=== PATIENT | female | born 1930 | race Caucasian/White ===

== ENCOUNTER → 2019-03-07 | Outpatient (CLI) | payer MEDICARE ==
--- NOTE | 2019-03-07 10:16 | Diagnostic Imaging Report ---
INDICATION: Mid back pain. No known injury. COMPARISON: None. FINDINGS: 4 views of the right ribs are submitted. No evidence of acute displaced rib fracture on the right. Generalized osteopenia is noted. Included views of the right chest demonstrate no focal consolidations. Scattered areas of discoid atelectasis are noted in the right lung. IMPRESSION: No acute displaced rib fractures on the right. Dictated by: Dictated on workstation # [id number]
--- NOTE | 2019-03-07 10:18 | Diagnostic Imaging Report ---
INDICATION: Pain in the middle of the back. No known injury. COMPARISON: None. FINDINGS: Multiple vertebral bodies demonstrate age-indeterminate height loss, most prominent at the T11 level. These findings are superimposed on generalized osteopenia. There is exaggerated kyphosis of the thoracic spine. Included views of the chest demonstrate no focal consolidations. Postcholecystectomy clips are noted in the right upper quadrant. IMPRESSION: Multiple age-indeterminate compression fractures in the thoracic spine. Recommend correlation with point tenderness and CT or MRI of the thoracic spine if indicated. Dictated by: Dictated on workstation # [id number]
== END ==
LOC: RAD FS 09:35
PROVIDERS: ATTEND Nurse Practitioner Family
DX: M48.54XA Collapsed vertebra, not elsewhere classified, thoracic region, initial encounter for fracture (principal)
CPT/HCPCS: 71100; 72070

== ENCOUNTER → 2019-10-31 | Outpatient (CLI) | payer MEDICARE ==
--- NOTE | 2019-10-31 14:30 | Diagnostic Imaging Report ---
PROCEDURE: US Renal Bilateral. TECHNIQUE: Multiple real-time grayscale images were obtained over the kidneys in various projections bilaterally. INDICATION: Chronic kidney disease stage IV. Both kidneys are small. Right kidney measures 7.5 x 3.8 x 3.9 cm, and the left kidney measures 7.3 x 4.2 x 4.3 cm. Cortical thickness and echogenicity is unremarkable. No calculi are seen. There is no hydronephrosis. Bladder is decompressed. Ureteral jets were not visualized. IMPRESSION: Small kidneys bilaterally. No other significant abnormality is detected. Dictated by: Dictated on workstation # [id number]
== END ==
LOC: RAD 11:10
PROVIDERS: ATTEND Internal Medicine
DX: N18.4 Chronic kidney disease, stage 4 (severe) (principal); N27.1 Small kidney, bilateral
CPT/HCPCS: 76770

== ENCOUNTER → 2019-11-29 | Outpatient (CLI) | payer MEDICARE ==
[2019-11-29 14:33] LABS: BILIRUBIN,URINE NEGATIVE (NEGATIVE); CLARITY,URINE CLEAR; COLOR,URINE YELLOW; GLUCOSE, URINE (UA) NEGATIVE (NEGATIVE); KETONES,URINE NEGATIVE (NEGATIVE); LEUKOCYTE ESTERASE ,URINE NEGATIVE (NEGATIVE); NITRITE,URINE NEGATIVE (NEGATIVE); PH,URINE 5.5 (5-9); PROTEIN,URINE NEGATIVE (NEGATIVE)
[2019-11-29 14:34] LABS: BACTERIA,URINE NEGATIVE /HPF
[2019-11-29 14:35] LABS: BASOPHILS % (AUTO) 0 % (0-10); EOSINOPHILS # (AUTO) 0.3 10^3/uL (0.0-0.3); EOSINOPHILS % (AUTO) 3 % (0-10); HEMATOCRIT 37 % (35-52); HEMOGLOBIN 12.1 G/DL (11.5-16.0); LYMPHOCYTES # (AUTO) 2.4 X 10^3 (1.0-4.0); LYMPHOCYTES % (AUTO) 23 % (12-44); MEAN CORPUSCULAR HEMOGLOBIN 31 PG (25-34); MEAN CORPUSCULAR HGB CONC 33 G/DL (32-36); MEAN CORPUSCULAR VOLUME 93 FL (80-99); MONOCYTES % (AUTO) 9 % (0-12); NEUTROPHILS # (AUTO) 6.7 X 10^3 (1.8-7.8); NEUTROPHILS % (AUTO) 65 % (42-75); PLATELET COUNT 289 10^3/uL (130-400); RED CELL DISTRIBUTION WIDTH 14.3 % (10.0-14.5); WHITE BLOOD COUNT 10.3 10^3/uL (4.3-11.0)
[2019-11-29 14:36] LABS: ALBUMIN 4.3 GM/DL (3.2-4.5); CALCIUM 9.8 MG/DL (8.5-10.1); CREATININE SERUM 2.64 MG/DL (0.60-1.30); POTASSIUM 4.9 MMOL/L (3.6-5.0)
[2019-11-30 15:45] LABS: PHOSPHORUS 3.1 MG/DL (2.3-4.7)
[2019-11-30 15:49] LABS: URINE CREATININE FOR RATIO 140 MG/DL (30-125)
[2019-11-30 15:50] LABS: URINE PROTEIN FOR RATIO ONLY < 6 MG/DL (6-12)
== END ==
LOC: LAB FS 12:59
PROVIDERS: ATTEND Internal Medicine
DX: N18.4 Chronic kidney disease, stage 4 (severe) (principal); E87.5 Hyperkalemia; R82.90 Unspecified abnormal findings in urine
CPT/HCPCS: 36415; 80069; 81000; 82570; 84156; 85025

== ENCOUNTER → 2020-01-03 | Outpatient (CLI) | payer MEDICARE ==
[2020-01-03 09:57] LABS: WHITE BLOOD COUNT 9.3 10^3/uL (4.3-11.0)
[2020-01-03 09:58] LABS: BASOPHILS % (AUTO) 0 % (0-10); HEMATOCRIT 38 % (35-52); HEMOGLOBIN 12.4 G/DL (11.5-16.0); LYMPHOCYTES % (AUTO) 30 % (12-44); MEAN CORPUSCULAR HEMOGLOBIN 31 PG (25-34); MEAN CORPUSCULAR HGB CONC 33 G/DL (32-36); MEAN CORPUSCULAR VOLUME 94 FL (80-99); MEAN PLATELET VOLUME 9.8 FL (7.4-10.4); MONOCYTES % (AUTO) 8 % (0-12); NEUTROPHILS % (AUTO) 59 % (42-75); PLATELET COUNT 331 10^3/uL (130-400); RED CELL DISTRIBUTION WIDTH 14.9 % (10.0-14.5)
[2020-01-03 09:59] LABS: EOSINOPHILS # (AUTO) 0.3 10^3/uL (0.0-0.3); EOSINOPHILS % (AUTO) 3 % (0-10); LYMPHOCYTES # (AUTO) 2.8 X 10^3 (1.0-4.0); MONOCYTES # (AUTO) 0.7 X 10^3 (0.0-1.0); NEUTROPHILS # (AUTO) 5.5 X 10^3 (1.8-7.8)
[2020-01-03 15:12] LABS: ALBUMIN 4.3 GM/DL (3.2-4.5); CALCIUM 9.4 MG/DL (8.5-10.1); CREATININE SERUM 2.32 MG/DL (0.60-1.30); PHOSPHORUS 3.3 MG/DL (2.3-4.7); POTASSIUM 4.9 MMOL/L (3.6-5.0)
[2020-01-04 11:04] LABS: BILIRUBIN,URINE NEGATIVE (NEGATIVE); CLARITY,URINE CLEAR; COLOR,URINE YELLOW; GLUCOSE, URINE (UA) NEGATIVE (NEGATIVE); KETONES,URINE NEGATIVE (NEGATIVE); LEUKOCYTE ESTERASE ,URINE TRACE (NEGATIVE); NITRITE,URINE NEGATIVE (NEGATIVE); PROTEIN,URINE NEGATIVE (NEGATIVE)
[2020-01-04 11:05] LABS: BACTERIA,URINE NEGATIVE /HPF
== END ==
LOC: LAB FS 08:27
PROVIDERS: ATTEND Internal Medicine
DX: I12.9 Hypertensive chronic kidney disease with stage 1 through stage 4 chronic kidney disease, or unspecified chronic kidney disease (principal); D63.1 Anemia in chronic kidney disease; N18.4 Chronic kidney disease, stage 4 (severe); E87.5 Hyperkalemia; E21.1 Secondary hyperparathyroidism, not elsewhere classified
CPT/HCPCS: 36415; 80069; 82607; 82746; 83540; 83550; 85025

== ENCOUNTER 2020-04-17 19:08 | Emergency (ER) | payer MEDICARE, MEDICAID ==
[~2020-04-17] VITALS: Ht 160 cm; Wt 61.0 kg
[2020-04-17 19:41] LABS: HEMOGLOBIN 10.9 G/DL (11.5-16.0); MEAN CORPUSCULAR HEMOGLOBIN 31 PG (25-34); WHITE BLOOD COUNT 14.8 10^3/uL (4.3-11.0)
--- NOTE | 2020-04-17 19:41 | ED Fall/Injury ---
General Chief Complaint: Trauma-Non Activation Stated Complaint: FALL Source: patient, EMS History of Present Illness Date Seen by Provider: Apr 17, 2020 Time Seen by Provider: 19:08 Initial Comments 89-year-old female presenting by EMS after having a fall at home. She states that she was walking outside her house and tripped and fell on the concrete. She denies losing consciousness. She does have a sore spot on the top of her head. She complains of mild pain in her neck and upper back but the majority of her pain is in the buttock area. She has pain in her left forearm with an abrasion. She denies any loss of consciousness. She did receive 50 g of fentanyl by EMS prior to arrival. This is brought her pain down to 1 or 2. She still has increased pain with movement. She states that she is unable to bear weight especially on the left leg and hip due to the pain. She denies taking any blood thinners. Allergies and Home Medications Allergies Coded Allergies: Sulfa (Sulfonamide Antibiotics) (Verified Allergy, Unknown, 04/17/20) Patient Home Medication List Home Medication List Reviewed: Yes Review of Systems Review of Systems Constitutional: No chills, No dizziness, No fever Eyes: Denies Blurred Vision, Denies Photophobia, Denies Vision Changes Ears, Nose, Mouth, Throat: denies ear pain, denies ear discharge, denies nose discharge, denies epistaxis Respiratory: No cough, No short of breath, No stridor, No wheezing Cardiovascular: No chest pain, No palpitations, No syncope Gastrointestinal: No abdominal pain, No nausea, No vomiting Genitourinary: No dysuria, No incontinence Musculoskeletal: see HPI Skin: see HPI, other (left forearm abrasion) Psychiatric/Neurological: Headache (mild left parietal where she has contusion/bruise) Past Ycnkosy-Erlosa-Dveikv Hx Past Med/Social Hx: Reviewed Nursing Past Med/Soc Hx Patient Social History Alcohol Use: Denies Use Recent Foreign Travel: No Contact w/Someone Who Travel: No Past Medical History Surgeries: Yes Abdominal, Appendectomy, Gallbladder, Hysterectomy Respiratory: No Cardiac: Yes Hypertension Neurological: No 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 Disorders: No Genitourinary: Yes Renal Failure Gastrointestinal: No Musculoskeletal: Yes Degenerate Disk Disease, Osteoporosis, Chronic Back Pain Endocrine: No HEENT: No Cancer: Yes Colon Did You Recieve Any Treatments: Yes What Type of Treatment Did You: Surgical Intervention Psychosocial: No Integumentary: No Physical Exam Vital Signs Vital Signs - First Documented Capillary Refill : Height, Weight, BMI Height: '" Weight: lbs. oz. kg; BMI Method: General Appearance: WD/WN, mild distress HEENT: PERRL/EOMI, TMs normal, pharynx normal Neck: full range of motion, supple, tender lateral (mild bilateral) Cardiovascular: normal peripheral pulses, regular rate, rhythm Respiratory: chest non-tender, lungs clear, normal breath sounds, no respiratory distress, no accessory muscle use Peripheral Pulses: 2+ Carotid (R), 2+ Carotid (L), 2+ Radial Pulses (R), 2+ Radial Pulses (L) Gastrointestinal: normal bowel sounds, non tender, soft, no pulsatile mass Back: vertebral tenderness (mid thoracic and lower lumbar/sacral area) Extremities: normal range of motion, no calf tenderness, normal capillary refill, other (tender to palpation left forearm where she has abrasion, pelvis stable but some pain to hip/pelvis with ROM of left hip on internal/external rotation) Neurologic/Psychiatric: 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, no motor/sensory deficits, alert, normal mood/affect, oriented x 3 Skin: normal color, warm/dry [place] Coma Score Best Eye Response: (4) Open Spontaneously Best Verbal Response: (5) Oriented Best Motor Response: (6) Obeys Commands Susana Total: 15 Progress/Results/Core Measures Results/Orders Lab Results Laboratory Tests Test 04/17/20 19:27 04/17/20 21:51 Range/Units White Blood Count 14.8 H 4.3-11.0 10^3/uL Red Blood Count 3.52 L 4.35-5.85 10^6/uL Hemoglobin 10.9 L 11.5-16.0 G/DL Hematocrit 33 L 35-52 % Mean Corpuscular Volume 94 80-99 FL Mean Corpuscular Hemoglobin 31 25-34 PG Mean Corpuscular Hemoglobin Concent 33 32-36 G/DL Red Cell Distribution Width 13.8 10.0-14.5 % Platelet Count 246 130-400 10^3/uL Mean Platelet Volume 9.7 7.4-10.4 FL Neutrophils (%) (Auto) 81 H 42-75 % Lymphocytes (%) (Auto) 10 L 12-44 % Monocytes (%) (Auto) 6 0-12 % Eosinophils (%) (Auto) 2 0-10 % Basophils (%) (Auto) 0 0-10 % Neutrophils # (Auto) 12.1 H 1.8-7.8 X 10^3 Lymphocytes # (Auto) 1.5 1.0-4.0 X 10^3 Monocytes # (Auto) 0.9 0.0-1.0 X 10^3 Eosinophils # (Auto) 0.3 0.0-0.3 10^3/uL Basophils # (Auto) 0.0 0.0-0.1 10^3/uL Neutrophils % (Manual) 82 % Lymphocytes % (Manual) 10 % Monocytes % (Manual) 4 % Eosinophils % (Manual) 0 % Basophils % (Manual) 0 % Band Neutrophils 4 % Blood Morphology Comment NORMAL Prothrombin Time 12.6 12.2-14.7 SEC INR Comment 0.9 0.8-1.4 Activated Partial Thromboplast Time 25 24-35 SEC Sodium Level 136 135-145 MMOL/L Potassium Level 5.4 H 3.6-5.0 MMOL/L Chloride Level 103 98-107 MMOL/L Carbon Dioxide Level 20 L 21-32 MMOL/L Anion Gap 13 5-14 MMOL/L Blood Urea Nitrogen 48 H 7-18 MG/DL Creatinine 2.12 H 0.60-1.30 MG/DL Estimat Glomerular Filtration Rate 22 BUN/Creatinine Ratio 23 Glucose Level 109 H 70-105 MG/DL Calcium Level 8.9 8.5-10.1 MG/DL Corrected Calcium 8.8 8.5-10.1 MG/DL Total Bilirubin 0.2 0.1-1.0 MG/DL Aspartate Amino Transf (AST/SGOT) 25 5-34 U/L Alanine Aminotransferase (ALT/SGPT) 19 0-55 U/L Alkaline Phosphatase 111 40-136 U/L Total Protein 6.6 6.4-8.2 GM/DL Albumin 4.1 3.2-4.5 GM/DL Urine Color YELLOW Urine Clarity CLEAR Urine pH 5.5 5-9 Urine Specific [place] 1.020 1.016-1.022 Urine Protein NEGATIVE NEGATIVE Urine Glucose (UA) NEGATIVE NEGATIVE Urine Ketones NEGATIVE NEGATIVE Urine Nitrite NEGATIVE NEGATIVE Urine Bilirubin NEGATIVE NEGATIVE Urine Urobilinogen 0.2 < = 1.0 MG/DL Urine Leukocyte Esterase NEGATIVE NEGATIVE Urine RBC (Auto) NEGATIVE NEGATIVE Urine RBC NONE /HPF Urine WBC NONE /HPF Urine Squamous Epithelial Cells RARE /HPF Urine Crystals NONE /LPF Urine Bacteria NONE /HPF Urine Casts NONE /LPF Urine Mucus NEGATIVE /LPF Urine Culture Indicated NO My Orders Orders - BRIANNE DOS SANTOS MD Ct Head/Cervical Spine Wo (04/17/20 19:32) Ct Chest/Abdomen/Pelvis Wo (04/17/20 19:32) Cbc With Automated Diff (04/17/20 19:33) Comprehensive Metabolic Panel (04/17/20 19:33) Ua Culture If Indicated (04/17/20 19:33) Protime With Inr (04/17/20 19:33) Partial Thromboplastin Time (04/17/20 19:33) Oxygen-Administer UD (04/17/20 19:34) Manual Differential (04/17/20 19:27) Ns (Ivpb) (Sodium Chloride 0.9%) (04/17/20 20:29) Vital Signs/I&O 04/17/20 04/17/20 04/17/20 19:53 19:53 22:51 Temp 36.0 36.0 Pulse 51 57 57 Resp 16 14 16 B/P (MAP) 163/66 (98) 178/67 (104) 178/67 Pulse Ox 98 98 98 O2 Delivery Nasal Cannula Nasal Cannula Nasal Cannula Progress Progress Note #1: Progress Note obtain basic labs and urine. check CT head and cervical spine since she has pain to scalp and cervical spine, CT of chest/abd/pelvis since she has pain in thoracic and lumbar spine, pelvis and left hip. she had mild hypoxia but this could be from Fentanyl 50 mcg just guard captain. Progress Note #2: Time: 20:27 Progress Note labs show mild elevation of her white blood cell count. This may be secondary to her stress reaction from the fall. Her chemistry shows chronic renal insufficiency with a mild elevation of her BUN as well. She might be mildly dehydrated. The CT of her head and cervical spine does not show any acute skull or cervical spine fractures. She has no intracranial hemorrhage. There is a thyroid nodule that could be evaluated with ultrasound non-emergently. Progress Note #3: Time: 21:28 Progress Note Check with Dr. Ramon for [facility] about possible medical admit but she stated with her fall and multiple vertebral fractures on imaging it would depend on what the trauma surgeon said. If they were comfortable taking the patient then she could be admitted and consult medicine. I spoke with Dr. Montalvo from a trauma surgery stand point and reviewed the case and number of fractures and that the radiologist could not delineate with her degree of osteopenia if this was acute or chronic fractures off of the imaging. He had recommended a MRI to get better definition of the fractures and their acuteness. While it would be possible to perform the MRI and have medicine consult as well as to physical therapy and/or rehabilitation there would not be any spine consultation available or availability for kyphoplasty at [place]. He recommended having the patient go to a larger trauma Center that would have these options with the patient. He could not guarantee that any of these things would be done for the patient but he would recommend at least being at a facility that had the capability to provide the option to her and her family. I then looked online and found that her ciaio lumite injector, Dr. Eleanor Carpenter Sri works out of [place] so I contacted them to see about a possible transfer. However, they informed me that they were on diversion to all transfers other than ICU patients and that she would not meet that criteria. I spoke with the patient's daughter and she requested to try [facility] for transfer. They were also on diversion but were accepting trauma patients, and since she had a standing height fall with inferior pubic ramus fracture on left and vertebral fracture of T6-L3 compression fractures they accepted her to the ED as a trauma transfer to evaluate her. Diagnostic Imaging Diagonstic Imaging: CT Plain Films/CT/US/NM/MRI: c-spine, head Comments NAME: TAHIR BUTCHER [facility] REC#: [id number] PT STATUS: REG ER : 1930 PHYSICIAN: BRIANNE DOS SANTOS MD ADMIT DATE: 04/17/20/ER FS Draft Date of Exam:04/17/20 CT HEAD/CERVICAL SPINE WO Clinical indication: Patient fell at home and hit back of head complaining of back pain neck pain and sacrum pain. Exam: Head CT without IV contrast with coronal and sagittal reformatted images. Axial CT scan of the cervical spine with sagittal and coronal reformations. Auto Exposure Controls were utilized during the CT exam to meet ALARA standards for radiation dose reduction. Comparison: None. Findings: Head CT: There is no evidence of acute cerebral infarct, intracranial hemorrhage, or gross mass effect. Diffuse brain parenchymal volume loss seen. 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 There is normal robert-white matter distinction. The brain parenchymal volume appears appropriate for patient's age. There is no significant midline shift or herniation. There is no evidence of hydrocephalus. The basal cisterns are unremarkable. There is an area of extracranial soft tissue swelling involving the high left parasagittal frontal region of the skull near the vertex. There is no skull fracture. Skull, extracranial soft tissue, and orbits are unremarkable. There is mild mucosal thickening involving both maxillary sinuses, ethmoid sinus and sphenoid sinus. Cervical spine: There is no acute cervical spine fracture or dislocation. There is diffuse disc bulge at C5-C6 level with uncinate spurs and vertebral body spurs. There is at least moderate to severe right C5-C6 neural foramen narrowing. Otherwise, there is no significant bony central canal or neural foramen narrowing. There is no prevertebral soft tissue thickening. There is a 5 mm low-density nodule involving the right thyroid gland. Lungs show no significant abnormality is visualized. Impression: 1: There is no skull fracture or intracranial hemorrhage. 2: Cervical spine with degenerative disease with no acute fracture or dislocation. 3: There is a 5 mm right thyroid gland nodule. Nonemergent thyroid ultrasound would better evaluate. Dictated on workstation # [id number] Dict: 04/17/201957 Trans: 04/17/202006 [facility] [id number] Interpreted by: LALO LOPEZ MD Electronically signed by: Diagonstic Imaging: CT Plain Films/CT/US/NM/MRI: chest, abdomen, pelvis Comments [facility] [place] NAME: TAHIR BUTCHER [facility] REC#: [id number] PT STATUS: REG ER : 1930 PHYSICIAN: BRIANNE DOS SANTOS MD ADMIT DATE: 04/17/20/ER FS Draft Date of Exam:04/17/20 CT CHEST/ABDOMEN/PELVIS WO CLINICAL INDICATION: Patient fell at home and hit back of head. Complained of back pain, neck pain and sacrum pain. Patient has history of appendectomy, and hysterectomy. EXAM: CT scan of the chest, abdomen and pelvis performed without IV contrast. Sagittal and coronal reformatted images were created. Auto Exposure Controls were utilized during the CT exam to meet ALARA standards for radiation dose reduction. COMPARISON: None. FINDINGS: CT chest: There is no pneumothorax and no pleural effusion. There is dependently positioned curvilinear airspace opacities involving the posterior aspects of both upper lobes and lower lobe regions which may related to atelectasis versus scarring. There is a small amount of pericardial fluid which is nonspecific. There is no gross mediastinal hematoma seen. There is no mediastinal or axillary lymphadenopathy. There is no aneurysmal dilation of the thoracic aorta. CT abdomen/pelvis: There is a nonspecific 3.7 cm slightly low density mass in the left lobe of liver; otherwise, the liver is unremarkable. Gallbladder is surgically resected. There are atrophic changes of the pancreas; otherwise, pancreas is unremarkable. Spleen shows no significant abnormality. Adrenal glands are unremarkable. There is multiple lobulated areas involving both kidneys which may represent cysts, but are all grossly 1 cm or less in size. There is no hydronephrosis. Bladder is fluid-filled with no gross abnormality. The uterus is surgically resected. The visualized portions of the ovaries are not seen and may also possibly be surgically resected. There are anastomotic sutures involving the low colonic region with no significant abnormality seen. There is diverticulosis involving the left colon but no CT evidence of diverticulitis. Appendix is surgically resected. There are anastomotic sutures overlying the right abdominal region as well. There is no intestinal obstruction. There is no intra-abdominal free air or free fluid. There is a fat-containing periumbilical hernia seen which is small with no adjacent inflammatory changes seen. There are multiple compression fracture deformities of the thoracic and lumbar spine. There is no burst fracture seen. Compression fracture deformities are seen involving the T6, T7, T8, T11, T12, L1, L2, and L3 vertebra. It is possible that there may be an acute fracture involving the upper endplate of the T11 vertebra anteriorly involving the upper endplate. Otherwise, there is no definite cortical disruption and it is possible that these may be chronic. There is also osteopenia limiting evaluation. There is a nondisplaced fracture involving the left inferior pubic ramus. Possible subtle nondisplaced fracture of the medial left pubic bone. IMPRESSION: 1: There is concern for possible fracture involving the upper aspect of the T11 vertebra. There are multiple compression fracture deformities of the T6, T7, T8, T12, L1, L2 and L3 vertebra which may be chronic, but given osteopenia, unable to exclude any of these possibly being acute. MRI of the thoracic and lumbar spine would better evaluate. There is no burst fracture. 2: There is nondisplaced fracture of the inferior left pubic ramus. There is possible subtle nondisplaced fracture of the medial left pubic bone. 3: There is no fracture of the hips. 4: There is no acute thoracic, intra-abdominal or pelvic process seen. 5: There is a 3.7 cm low-density mass in the left lobe of the liver. Nonemergent MRI of the liver with and without contrast would better evaluate. 6: Indeterminate subcentimeter multiple exophytic areas involving both kidneys. Cysts may be considered. This also could be better evaluated with MRI. Results of this report were discussed with Dr. Kamran Dos Santos via the telephone on 04/17/2020 at 2048 hours. Dictated on workstation # [id number] Dict: 04/17/202030 Trans: 04/17/202058 [facility] [id number] Interpreted by: LALO LOPEZ MD Electronically signed by: Departure Impression Primary Impression: Fracture of left inferior pubic ramus Qualified Codes: S32.592A - Other specified fracture of left pubis, initial encounter for closed fracture Additional Impressions: Traumatic compression fracture of T11 thoracic vertebra Qualified Codes: S22.080A - Wedge compression fracture of t11-T12 vertebra, initial encounter for closed fracture Lumbar compression fracture Qualified Codes: S32.010A - Wedge compression fracture of first lumbar vertebra, initial encounter for closed fracture Fracture, thoracic vertebra, compression Qualified Codes: S22.080A - Wedge compression fracture of t11-T12 vertebra, initial encounter for closed fracture Fall at home Qualified Codes: W19.XXXA - Unspecified fall, initial encounter; Y92.009 - Unspecified place in unspecified non-institutional (private) residence as the place of occurrence of the external cause Abrasion of left forearm, initial encounter Disposition: 02 XFER [facility] Condition: Stable Transfer Transfer Reason: Exceeds level of care Time Spoke to Accepting Phy: 22:02 Transfer Progress Notes I spoke with Dr. Felix at [facility] ED and she accepted pt for trauma transfer to the facility for spine/ortho eval and treatment for her multiple compression fractures and the left pubic ramus fracture from her fall tonight. Transfer Facility: [facility] Method of Transfer: EMS Departure-Patient Inst. Referrals: [facility] ([place]P) Primary Care Physician HARJINDER AMBROCIO APRN (Family) Primary Care Physician BRIANNE DOS SANTOS MD Apr 17, 2020 19:41
[2020-04-17 19:42] LABS: BASOPHILS % (AUTO) 0 % (0-10); EOSINOPHILS # (AUTO) 0.3 10^3/uL (0.0-0.3); EOSINOPHILS % (AUTO) 2 % (0-10); HEMATOCRIT 33 % (35-52); LYMPHOCYTES # (AUTO) 1.5 X 10^3 (1.0-4.0); LYMPHOCYTES % (AUTO) 10 % (12-44); MEAN CORPUSCULAR HGB CONC 33 G/DL (32-36); MEAN CORPUSCULAR VOLUME 94 FL (80-99); MEAN PLATELET VOLUME 9.7 FL (7.4-10.4); MONOCYTES # (AUTO) 0.9 X 10^3 (0.0-1.0); MONOCYTES % (AUTO) 6 % (0-12); NEUTROPHILS # (AUTO) 12.1 X 10^3 (1.8-7.8); NEUTROPHILS % (AUTO) 81 % (42-75); PLATELET COUNT 246 10^3/uL (130-400); RED CELL DISTRIBUTION WIDTH 13.8 % (10.0-14.5)
[2020-04-17 19:52] LABS: ALBUMIN 4.1 GM/DL (3.2-4.5); BILIRUBIN,TOTAL 0.2 MG/DL (0.1-1.0); CALCIUM 8.9 MG/DL (8.5-10.1); CREATININE SERUM 2.12 MG/DL (0.60-1.30); INR 0.9 (0.8-1.4); POTASSIUM 5.4 MMOL/L (3.6-5.0); PROTHROMBIN TIME PATIENT 12.6 SEC (12.2-14.7); TOTAL PROTEIN 6.6 GM/DL (6.4-8.2)
[2020-04-17 20:05] LABS: BAND NEUTROPHILS 4 %; BASOPHILS % (MANUAL) 0 %; EOSINOPHILS % (MANUAL) 0 %; LYMPHOCYTES % (MANUAL) 10 %; MONOCYTES % (MANUAL) 4 %; NEUTROPHILS % (MANUAL) 82 %; RBC MORPH NORMAL
--- NOTE | 2020-04-17 20:08 | Diagnostic Imaging Report ---
Clinical indication: Patient fell at home and hit back of head complaining of back pain neck pain and sacrum pain. Exam: Head CT without IV contrast with coronal and sagittal reformatted images. Axial CT scan of the cervical spine with sagittal and coronal reformations. Auto Exposure Controls were utilized during the CT exam to meet ALARA standards for radiation dose reduction. Comparison: None. Findings: Head CT: There is no evidence of acute cerebral infarct, intracranial hemorrhage, or gross mass effect. Diffuse brain parenchymal volume loss seen. 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 There is normal robert-white matter distinction. The brain parenchymal volume appears appropriate for patient's age. There is no significant midline shift or herniation. There is no evidence of hydrocephalus. The basal cisterns are unremarkable. There is an area of extracranial soft tissue swelling involving the high left parasagittal frontal region of the skull near the vertex. There is no skull fracture. Skull, extracranial soft tissue, and orbits are unremarkable. There is mild mucosal thickening involving both maxillary sinuses, ethmoid sinus and sphenoid sinus. Cervical spine: There is no acute cervical spine fracture or dislocation. There is diffuse disc bulge at C5-C6 level with uncinate spurs and vertebral body spurs. There is at least moderate to severe right C5-C6 neural foramen narrowing. Otherwise, there is no significant bony central canal or neural foramen narrowing. There is no prevertebral soft tissue thickening. There is a 5 mm low-density nodule involving the right thyroid gland. Lungs show no significant abnormality is visualized. Impression: 1: There is no skull fracture or intracranial hemorrhage. 2: Cervical spine with degenerative disease with no acute fracture or dislocation. 3: There is a 5 mm right thyroid gland nodule. Nonemergent thyroid ultrasound would better evaluate. Dictated by: Dictated on workstation # [id number]
[2020-04-17] MEDS ORDERED: NS (IVPB) 250 ML IV STA (20:29)
--- NOTE | 2020-04-17 21:00 | Diagnostic Imaging Report ---
CLINICAL INDICATION: Patient fell at home and hit back of head. Complained of back pain, neck pain and sacrum pain. Patient has history of appendectomy, and hysterectomy. EXAM: CT scan of the chest, abdomen and pelvis performed without IV contrast. Sagittal and coronal reformatted images were created. Auto Exposure Controls were utilized during the CT exam to meet ALARA standards for radiation dose reduction. COMPARISON: None. FINDINGS: CT chest: There is no pneumothorax and no pleural effusion. There is dependently positioned curvilinear airspace opacities involving the posterior aspects of both upper lobes and lower lobe regions which may related to atelectasis versus scarring. There is a small amount of pericardial fluid which is nonspecific. There is no gross mediastinal hematoma seen. There is no mediastinal or axillary lymphadenopathy. There is no aneurysmal dilation of the thoracic aorta. CT abdomen/pelvis: There is a nonspecific 3.7 cm slightly low density mass in the left lobe of liver; otherwise, the liver is unremarkable. Gallbladder is surgically resected. There are atrophic changes of the pancreas; otherwise, pancreas is unremarkable. Spleen shows no significant abnormality. Adrenal glands are unremarkable. There is multiple lobulated areas involving both kidneys which may represent cysts, but are all grossly 1 cm or less in size. There is no hydronephrosis. Bladder is fluid-filled with no gross abnormality. The uterus is surgically resected. The visualized portions of the ovaries are not seen and may also possibly be surgically resected. There are anastomotic sutures involving the low colonic region with no significant abnormality seen. There is diverticulosis involving the left colon but no CT evidence of diverticulitis. Appendix is surgically resected. There are anastomotic sutures overlying the right abdominal region as well. There is no intestinal obstruction. There is no intra-abdominal free air or free fluid. There is a fat-containing periumbilical hernia seen which is small with no adjacent inflammatory changes seen. There are multiple compression fracture deformities of the thoracic and lumbar spine. There is no burst fracture seen. Compression fracture deformities are seen involving the T6, T7, T8, T11, T12, L1, L2, and L3 vertebra. It is possible that there may be an acute fracture involving the upper endplate of the T11 vertebra anteriorly involving the upper endplate. Otherwise, there is no definite cortical disruption and it is possible that these may be chronic. There is also osteopenia limiting evaluation. There is a nondisplaced fracture involving the left inferior pubic ramus. Possible subtle nondisplaced fracture of the medial left pubic bone. IMPRESSION: 1: There is concern for possible fracture involving the upper aspect of the T11 vertebra. There are multiple compression fracture deformities of the T6, T7, T8, T12, L1, L2 and L3 vertebra which may be chronic, but given osteopenia, unable to exclude any of these possibly being acute. MRI of the thoracic and lumbar spine would better evaluate. There is no burst fracture. 2: There is nondisplaced fracture of the inferior left pubic ramus. There is possible subtle nondisplaced fracture of the medial left pubic bone. 3: There is no fracture of the hips. 4: There is no acute thoracic, intra-abdominal or pelvic process seen. 5: There is a 3.7 cm low-density mass in the left lobe of the liver. Nonemergent MRI of the liver with and without contrast would better evaluate. 6: Indeterminate subcentimeter multiple exophytic areas involving both kidneys. Cysts may be considered. This also could be better evaluated with MRI. Results of this report were discussed with Dr. Kamran Villegas via the telephone on 04/17/2020 at 2048 hours. Dictated by: Dictated on workstation # [id number]
[2020-04-17 22:01] LABS: BILIRUBIN,URINE NEGATIVE (NEGATIVE); CLARITY,URINE CLEAR; COLOR,URINE YELLOW; GLUCOSE, URINE (UA) NEGATIVE (NEGATIVE); KETONES,URINE NEGATIVE (NEGATIVE); LEUKOCYTE ESTERASE ,URINE NEGATIVE (NEGATIVE); NITRITE,URINE NEGATIVE (NEGATIVE); PH,URINE 5.5 (5-9); PROTEIN,URINE NEGATIVE (NEGATIVE); SQUAMOUS EPITHELIAL CELL,UR RARE /HPF
--- NOTE | 2020-04-17 22:40 | NUR ---
[facility] contacted for patient transport to [facility].
--- NOTE | 2020-04-17 22:44 | NUR ---
Report called to Poncho BENDER at [facility].
[2020-04-17 22:51] VITALS: BP 178/67
--- NOTE | 2020-04-17 22:58 | NUR ---
Patient departure from ER with [facility].
== END 2020-04-17 23:05 | disposition short-term general hospital (02) ==
LOC: EDUNIT# 19:08 → ER FS 19:09
DX: S22.080A Wedge compression fracture of T11-T12 vertebra, initial encounter for closed fracture (principal); S32.592A Other specified fracture of left pubis, initial encounter for closed fracture; S32.000A Wedge compression fracture of unspecified lumbar vertebra, initial encounter for closed fracture; S50.812A Abrasion of left forearm, initial encounter; N19 Unspecified kidney failure; R40.2410 Glasgow coma scale score 13-15, unspecified time; Z88.2 Allergy status to sulfonamides; Z85.038 Personal history of other malignant neoplasm of large intestine; W01.0XXA Fall on same level from slipping, tripping and stumbling without subsequent striking against object, initial encounter; Y92.009 Unspecified place in unspecified non-institutional (private) residence as the place of occurrence of the external cause
CPT/HCPCS: 36415; 70450; 71250; 72125; 74176; 80053; 81000; 85007; 85027; 85610; 85730

== ENCOUNTER 2020-05-15 09:54 | Emergency (ER) | payer MEDICARE, MEDICAID ==
[~2020-05-15] VITALS: Ht 162 cm; Wt 36.5 kg
--- NOTE | 2020-05-15 10:10 | NUR ---
Patient's shahab Mckeon is contact and waiting in car - phone number [phone]. Daughter requests images to be sent to [facility] if any are completed.
[2020-05-15 10:15] VITALS: BP 191/75
--- NOTE | 2020-05-15 10:15 | NUR ---
Pt reports she has not taken her blood pressure medication this morning.
--- NOTE | 2020-05-15 11:07 | Diagnostic Imaging Report ---
Indication: Pelvic pain fall 3 weeks ago Study correlated with a CT 04/17/2020 FINDINGS: Having become apparent since the previous exam are fractures of the right superior and inferior pubic rami. These appeared subacute. In the previous CT reviewed they cannot be detected even retrospectively. Its unclear if these are only now become apparent owing to some new bone formation and partial healing in this osteoporotic patient or if these injuries are new from the CT of 04/17. Also reflecting a newly apparent finding is irregularity of the left lateral superior pubic ramus extending into the anterior acetabular column. The prior CT does show a fracture of the inferior left pubic ramus. This showed no change. No symphyseal or SI joint diastases. No pathological displacement of air-containing bowel loops. No dislocation of the femoral heads which appeared intact. Femoral necks unremarkable. There is lower lumbar advanced spondylosis. IMPRESSION: Subacute appearing fractures of the right superior-inferior pubic ramus imperceptible on CT 04/17/2020 left superior ramus fracture likely involves the anterior column of the left acetabulum also imperceptible on the comparison CT. Known left inferior pubic ramus fracture in stable anatomic alignment. No symphyseal or SI joint diastases. As discussed above its unclear if these additional fractures are only now apparent in this osteoporotic basis owing to slight displacement and partial healing or if these are new injuries sustained since 04/17. In light of the change a repeat pelvic CT recommended as further workup. No findings of bowel obstruction or abnormal fecal loading. Dictated by: Dictated on workstation # [id number]
--- NOTE | 2020-05-15 11:18 | ED Hip Pain/Injury ---
General Chief Complaint: Hip/Pelvic Problems Stated Complaint: PELVIC PAIN Nursing Triage Note: Pt c/o pelvic pain. Pt had fall approx 4 weeks ago and was seen and treated at this facility. Pt reports pain since fall. Source: patient, family History of Present Illness Date Seen by Provider: May 15, 2020 Time Seen by Provider: 11:15 Initial Comments 89-year-old female presents with complaint of pelvic pain. History of a fall on 04/17 with documented pelvic fractures per CT report. Patient w dementia and not a good historian. Allergies and Home Medications Allergies Coded Allergies: Sulfa (Sulfonamide Antibiotics) (Verified Allergy, Unknown, 04/17/20) Home Medications Cephalexin 500 Mg Tablet, 500 MG PO TID Prescribed by: ELIZA SHEN on 05/15/20 1312 Patient Home Medication List Home Medication List Reviewed: Yes Review of Systems Constitutional: No fever, No malaise, No weakness Cardiovascular: No chest pain, No edema, No palpitations, No syncope Gastrointestinal: abdominal pain (lower); No loss of appetite, No nausea, No vomiting Genitourinary: No dysuria, No frequency Musculoskeletal: No back pain, No joint pain; other (pelvic pain) Skin: No change in color, No rash Past Rgkkmqm-Ahepjz-Syrrwe Hx Past Med/Social Hx: Reviewed Nursing Past Med/Soc Hx Patient Social History Alcohol Use: Denies Use Recreational Drug Use: No Smoking Status: Never a Smoker Recent Foreign Travel: No Contact w/Someone Who Travel: No Recent Infectious Disease Expo: No Recent Hopitalizations: No Physical Abuse: No Sexual Abuse: No Mistreated: No Fear: No Seasonal Allergies Seasonal Allergies: No Past Medical History Surgeries: Yes Abdominal, Appendectomy, Gallbladder, Hysterectomy Respiratory: No Cardiac: Yes Hypertension Neurological: No 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 Disorders: No [employer] History: Hysterectomy Genitourinary: Yes Renal Failure Gastrointestinal: No Musculoskeletal: Yes Degenerate Disk Disease, Osteoporosis, Chronic Back Pain Endocrine: No HEENT: No Cancer: Yes Colon Did You Recieve Any Treatments: Yes What Type of Treatment Did You: Surgical Intervention Psychosocial: No Integumentary: No Blood Disorders: No Physical Exam Vital Signs Vital Signs - First Documented 05/15/20 10:15 Temp 36.5 Pulse 73 Resp 18 B/P (MAP) 191/75 (113) Pulse Ox 98 Capillary Refill : Less Than 3 Seconds Height, Weight, BMI Height: '" Weight: lbs. oz. kg; 13.00 BMI Method: General Appearance: No Apparent Distress, WD/WN HEENT: PERRL/EOMI, Normal ENT Inspection Neck: Full Range of Motion, Non Tender, Supple Cardiovascular: Regular Rate, Rhythm, No Edema, Normal Peripheral Pulses Respiratory: Chest Non Tender, Lungs Clear Gastrointestinal: Non Tender, Soft Back: Normal Inspection, No CVA Tenderness, No Vertebral Tenderness Extremity: Normal Capillary Refill, Normal Inspection, Non Tender, No Calf Tenderness Neurologic/Psychiatric: Alert, No Motor/Sensory Deficits, Normal Mood/Affect Skin: Normal Color, Warm/Dry Progress/Results/Core Measures Results/Orders Lab Results Laboratory Tests Test 05/15/20 11:30 Range/Units Urine Color YELLOW Urine Clarity CLOUDY Urine pH 7.5 5-9 Urine Specific [place] 1.015 L 1.016-1.022 Urine Protein 1+ H NEGATIVE Urine Glucose (UA) NEGATIVE NEGATIVE Urine Ketones NEGATIVE NEGATIVE Urine Nitrite NEGATIVE NEGATIVE Urine Bilirubin NEGATIVE NEGATIVE Urine Urobilinogen 0.2 < = 1.0 MG/DL Urine Leukocyte Esterase 2+ H NEGATIVE Urine RBC (Auto) 1+ H NEGATIVE Urine RBC 5-10 H /HPF Urine WBC >100 H /HPF Urine Squamous Epithelial Cells NONE /HPF Urine Crystals NONE /LPF Urine Bacteria LARGE H /HPF Urine Casts NONE /LPF Urine Mucus NEGATIVE /LPF Urine Culture Indicated YES My Orders Orders - ELIZA SHEN DO Abdomen (Kub) 1 View (05/15/20 10:18) Urinalysis (05/15/20 10:18) Ct Abdomen/Pelvis Wo (05/15/20 11:18) Urine Culture (05/15/20 11:30) Vital Signs/I&O 05/15/20 10:15 Temp 36.5 Pulse 73 Resp 18 B/P (MAP) 191/75 (113) Pulse Ox 98 Blood Pressure Mean: 113 Diagnostic Imaging Diagonstic Imaging: Xray Comments Date of Exam:05/15/20 ABDOMEN (KUB) 1 VIEW Indication: Pelvic pain fall 3 weeks ago Study correlated with a CT 04/17/2020 FINDINGS: Having become apparent since the previous exam are fractures of the right superior and inferior pubic rami. These appeared subacute. In the previous CT reviewed they cannot be detected even retrospectively. Its unclear if these are only now become apparent owing to some new bone formation and partial healing in this osteoporotic patient or if these injuries are new from the CT of 04/17. Also reflecting a newly apparent finding is irregularity of the left lateral superior pubic ramus extending into the anterior acetabular column. The prior CT does show a fracture of the inferior left pubic ramus. This showed no change. No symphyseal or SI joint diastases. No pathological displacement of air-containing bowel loops. No dislocation of the femoral heads which appeared intact. Femoral necks unremarkable. There is lower lumbar advanced spondylosis. IMPRESSION: Subacute appearing fractures of the right superior-inferior pubic ramus imperceptible on CT 04/17/2020 left superior ramus fracture likely involves the anterior column of the left acetabulum also imperceptible on the comparison CT. Known left inferior pubic ramus fracture in stable anatomic alignment. No symphyseal or SI joint diastases. As discussed above its unclear if these additional fractures are only now apparent in this osteoporotic basis owing to slight displacement and partial healing or if these are new injuries sustained since 04/17. In light of the change a repeat pelvic CT recommended as further workup. No findings of bowel obstruction or abnormal fecal loading. Dictated on workstation # [id number] Dict: 05/15/20 1047 Trans: 05/15/[address] [facility] [id number] Interpreted by: JOSE GROVES Electronically signed by: COMPARISON: 04/17/2020. FINDINGS: There are new small nonloculated dependent posterior sulcal pleural effusions. There is no abdominal or pelvic ascites. No acute fluid collection. No bowel, biliary, or urinary tract obstruction. The mass in the left hepatic lobe lateral sector is unchanged from the prior exam and indeterminate between benign versus malignant. It is 3.6 cm in diameter. No perihepatic or subcapsular fluid collection. The unopacified spleen is unremarkable. The pancreas is nonfocal and nonacute. The kidneys are unobstructed. There is no evidence for intra or retroperitoneal hematoma. The unopacified urinary bladder is unremarkable. There are infraumbilical fatty abdominal wall hernias, noninflamed. There is no pneumatosis. There is no free air. There are nonaneurysmal aortic atherosclerotic vascular calcifications. The thoracolumbar spine reveals advanced spondylosis with multiple thoracolumbar vertebral body compression deformities, unchanged from the prior exam. There is progressive new bone formation associated with the subacute healing left inferior pubic ramus fracture as well as adjacent ossifying intramuscular hematoma; however, subacute healing fractures, even retrospectively, are imperceptible on the prior exam involving the patient's right superior and inferior pubic ramus as well as the left superior pubic bone extending laterally into the acetabular anterior column. These injuries also show some new bone formation and are believed nonacute. It is unclear if these were previously occult at the prior exam or if there has been a new injury shortly following the performance of the prior study, correlate clinically. There is no dislocation. No articular disruption to the acetabula bilaterally. The femoral necks and heads are intact. The sacrum and coccygeal segments are unremarkable. IMPRESSION: 1. There are bilateral subacute superior and inferior pubic rami fractures. The left superior fracture extends into the acetabular anterior column. Only one of these four fractures is present on the comparison study, considerations as above. 2. Stable osteoporotic thoracolumbar compression fractures. 3. New small pleural effusions and dependent basilar atelectasis. No bowel, biliary, or urinary tract obstruction and no findings of abdominal/pelvic intra or retroperitoneal hemorrhage nor viscus perforation. Dictated on workstation # [id number] Dict: 05/15/20 1249 Trans: 05/15/20 1312 [id number] Interpreted by: JOSE GROVES Electronically signed by: Departure Impression Primary Impression: Fracture of pelvis Qualified Codes: S32.9XXD - Fracture of unspecified parts of lumbosacral spine and pelvis, subsequent encounter for fracture with routine healing Additional Impression: UTI (urinary tract infection) Qualified Codes: N39.0 - Urinary tract infection, site not specified Disposition: 01 HOME, SELF-CARE Condition: Stable Departure-Patient Inst. Decision time for Depature: 13:03 Referrals: [facility] (PCP) Primary Care Physician HARJINDER AMBROCIO APRN (Family) Primary Care Physician Patient Instructions: Pelvic Fracture (DC), Urinary Tract Infection, Adult (DC) Add. Discharge Instructions: follow up with your PCP in 1 week for re-evaluation All discharge instructions reviewed with patient and/or family. Voiced understanding. Scripts Cephalexin (Cephalexin) 500 Mg Tablet 500 MG PO TID, #21 TAB 0 Refills Prov: ELIZA SHEN DO 05/15/20 ELIZA SHEN DO May 15, 2020 11:18
--- NOTE | 2020-05-15 11:30 | NUR ---
Pt was incont of mod amt urine in depends and assisted up to [facility] to further empy out bladder and do pericare.
[2020-05-15 11:45] LABS: BACTERIA,URINE LARGE /HPF; BILIRUBIN,URINE NEGATIVE (NEGATIVE); CLARITY,URINE CLOUDY; COLOR,URINE YELLOW; GLUCOSE, URINE (UA) NEGATIVE (NEGATIVE); KETONES,URINE NEGATIVE (NEGATIVE); LEUKOCYTE ESTERASE ,URINE 2+ (NEGATIVE); NITRITE,URINE NEGATIVE (NEGATIVE); PH,URINE 7.5 (5-9); PROTEIN,URINE 1+ (NEGATIVE); WBC,URINE >100 /HPF
--- NOTE | 2020-05-15 11:45 | NUR ---
Updated dgt Neicha of the plan for CT and doing a urinalysis also. Dgt reports patient was never incont prior to injuries of the fall.
--- NOTE | 2020-05-15 13:00 | NUR ---
Call rec'd from Linda singh. Updated the radiologist report on CT has fallen into delayed report and staff in radiology has made a call to check on it. Will return a call when it crosses over to . Pt does have a UTI.
[2020-05-15] MEDS ORDERED: CEPH500T PO (13:12)
--- NOTE | 2020-05-15 13:13 | Diagnostic Imaging Report ---
PROCEDURE: CT abdomen and pelvis without contrast. TECHNIQUE: Multiple contiguous axial images were obtained through the abdomen and pelvis without the use of intravenous contrast. Auto Exposure Controls were utilized during the CT exam to meet ALARA standards for radiation dose reduction. INDICATION: Abdominal pain. COMPARISON: 04/17/2020. FINDINGS: There are new small nonloculated dependent posterior sulcal pleural effusions. There is no abdominal or pelvic ascites. No acute fluid collection. No bowel, biliary, or urinary tract obstruction. The mass in the left hepatic lobe lateral sector is unchanged from the prior exam and indeterminate between benign versus malignant. It is 3.6 cm in diameter. No perihepatic or subcapsular fluid collection. The unopacified spleen is unremarkable. The pancreas is nonfocal and nonacute. The kidneys are unobstructed. There is no evidence for intra or retroperitoneal hematoma. The unopacified urinary bladder is unremarkable. There are infraumbilical fatty abdominal wall hernias, noninflamed. There is no pneumatosis. There is no free air. There are nonaneurysmal aortic atherosclerotic vascular calcifications. The thoracolumbar spine reveals advanced spondylosis with multiple thoracolumbar vertebral body compression deformities, unchanged from the prior exam. There is progressive new bone formation associated with the subacute healing left inferior pubic ramus fracture as well as adjacent ossifying intramuscular hematoma; however, subacute healing fractures, even retrospectively, are imperceptible on the prior exam involving the patient's right superior and inferior pubic ramus as well as the left superior pubic bone extending laterally into the acetabular anterior column. These injuries also show some new bone formation and are believed nonacute. It is unclear if these were previously occult at the prior exam or if there has been a new injury shortly following the performance of the prior study, correlate clinically. There is no dislocation. No articular disruption to the acetabula bilaterally. The femoral necks and heads are intact. The sacrum and coccygeal segments are unremarkable. IMPRESSION: 1. There are bilateral subacute superior and inferior pubic rami fractures. The left superior fracture extends into the acetabular anterior column. Only one of these four fractures is present on the comparison study, considerations as above. 2. Stable osteoporotic thoracolumbar compression fractures. 3. New small pleural effusions and dependent basilar atelectasis. No bowel, biliary, or urinary tract obstruction and no findings of abdominal/pelvic intra or retroperitoneal hemorrhage nor viscus perforation. Dictated by: Dictated on workstation # [id number]
--- NOTE | 2020-05-15 13:15 | NUR ---
CT report now available.
--- NOTE | 2020-05-15 13:20 | NUR ---
Called and spoke with dgt and reviewed reports Dr Wells relayed to nurse to release. The appearance of pubic fx reveals healing process but identified not just the one on Left but total of 4 fxs in pelvic bone as bilat in the upper and lower regions that are all showing healing. The patient's dgt made aware of the UTI also, [facility]
--- NOTE | 2020-05-15 13:30 | NUR ---
Pt is discharged after review of home instructions with pt and dgt. The dgt reports patient is on Home Health and has CKD and currently hyponatremic and on a fluid restrictions. Discussed with dgt to update her PCP of the UTI. We will continue to observe for urine culture and sensitivity thru weekend and will notifiy if antibiotic needs changed.
== END 2020-05-15 13:30 | disposition home or self-care (01) ==
LOC: EDUNIT# 09:54 → ER FS 09:56
DX: S32.511D Fracture of superior rim of right pubis, subsequent encounter for fracture with routine healing (principal); N39.0 Urinary tract infection, site not specified; I10 Essential (primary) hypertension; Z85.038 Personal history of other malignant neoplasm of large intestine; Z88.2 Allergy status to sulfonamides; W19.XXXA Unspecified fall, initial encounter
CPT/HCPCS: 74018; 74176; 81000; 87077; 87088; 99283

== ENCOUNTER → 2020-05-16 | Outpatient (CLI) | payer MEDICAID, MEDICARE ==
[~2020-05-16] MED LIST: CEPH500T PO
--- NOTE | 2020-05-16 12:03 | Diagnostic Imaging Report ---
INDICATION: Back pain. COMPARISON: 04/17/2020 FINDINGS: Multiple frontal and lateral radiographic views of the lumbar spine were obtained. Evaluation of static alignment shows mild levoscoliotic deformity epicentered at the L2 level. AP static alignment is maintained. There is no evidence of jumped facets. Vertebral body height loss is identified at multiple levels. When compared to previous CT abdomen dated 04/17/2020, there is no significant interval change. Moderate multilevel degenerative changes are noted. Visualized small bowel loops are nondistended. IMPRESSION: 1. Multiple levels of vertebral body height loss stable compared to 04/17/2020. Despite the stable appearance, [id number] fracture without significant height loss cannot be entirely excluded. Correlation with MRI is recommended if further evaluation is indicated. 2. Moderate multilevel degenerative changes. Dictated by: Dictated on workstation # [id number]
--- NOTE | 2020-05-16 12:31 | Diagnostic Imaging Report ---
EXAMINATION: Thoracic spine at 11:38 a.m. INDICATION: Back pain. FINDINGS: The prior thoracic spine exam of 03/07/2019 noted multiple age-indeterminate compression fracture deformities. The CT chest, abdomen, and pelvis exam of 04/17/2020 also identified compression fractures of T6, T7, T8, T11, T12, L1, L2, and L3. The possibility that the fracture of T11 was acute was raised. On this study, the T11 vertebral body does not appear to have changed significantly since the prior exam and the other compression fractures appear stable as well. There is no acute bony abnormality appreciated. Even so, if clinical concern regarding an acute abnormality persists, then MRI would be recommended for additional study. IMPRESSION: 1. The compression fractures of the thoracic and lumbar spine seem similar to the prior CT exam. There is no acute bony abnormality identified with certainty. Recommendations as above. Dictated by: Dictated on workstation # [id number]
== END ==
LOC: RAD FS 11:20
DX: S22.080D Wedge compression fracture of T11-T12 vertebra, subsequent encounter for fracture with routine healing (principal); S32.010D Wedge compression fracture of first lumbar vertebra, subsequent encounter for fracture with routine healing; M47.816 Spondylosis without myelopathy or radiculopathy, lumbar region
CPT/HCPCS: 72070; 72100

== ENCOUNTER 2020-06-03 10:57 | Emergency (ER) | payer MEDICARE ==
[~2020-06-03] VITALS: Ht 160 cm; Wt 56.6 kg
--- NOTE | 2020-06-03 11:09 | ED General ---
General Stated Complaint: DIFFICULTY SWALLOWING History of Present Illness Date Seen by Provider: Jun 03, 2020 Time Seen by Provider: 11:09 Initial Comments 89-year-old female brought in by her family. Patient brought her in because they would like to have her urine rechecked. She is currently being treated for a UTI. She has chronic kidney disease. Patient herself states that she really isn't having any issues. Family reports she's having issues with swallowing such as some occasional gagging and choking. Patient denies this. The issues with taking gagging and choking have been on and off for quite a while it sounds like. There is no acute problems. Patient thinks she is here because she had a recent fall and is in a brace for her back. Also had a recent pelvis fracture. And that she came in for a follow-up. Patient states she is actually feeling fine. Allergies and Home Medications Allergies Coded Allergies: Sulfa (Sulfonamide Antibiotics) (Verified Allergy, Unknown, 04/17/20) Home Medications Cephalexin 500 Mg Tablet, 500 MG PO TID Prescribed by: ELIZA SHEN on 05/15/20 1312 Patient Home Medication List Home Medication List Reviewed: Yes Review of Systems Review of Systems Constitutional: No chills, No fever EENTM: see HPI Respiratory: no symptoms reported; No cough, No short of breath Cardiovascular: No chest pain, No palpitations Gastrointestinal: No abdominal pain, No nausea, No vomiting Musculoskeletal: see HPI Skin: no symptoms reported Psychiatric/Neurological: No Symptoms Reported Hematologic/Lymphatic: No Symptoms Reported Past Wcvqatx-Xztjhk-Lnkjqj Hx Past Med/Social Hx: Reviewed Nursing Past Med/Soc Hx Patient Social History Recent Foreign Travel: No Contact w/Someone Who Travel: No Recent Hopitalizations: No Seasonal Allergies Seasonal Allergies: No Past Medical History Surgeries: Yes Abdominal, Appendectomy, Gallbladder, Hysterectomy Respiratory: No Cardiac: Yes Hypertension Neurological: No 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 Disorders: No 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 oz. kg; 13.00 BMI Method: General Appearance: No Apparent Distress, WD/WN HEENT: PERRL/EOMI Neck: Non Tender, Supple Respiratory: Lungs Clear, Normal Breath Sounds, No Accessory Muscle Use, No Respiratory Distress Cardiovascular: Regular Rate, Rhythm, No Edema Gastrointestinal: Non Tender, Soft Back: Other (tlso brace in place ) Neurologic/Psychiatric: Alert, Normal Mood/Affect, content analyst II-XII Norm as Tested Progress/Results/Core Measures Suspected Sepsis SIRS Temperature: Pulse: Respiratory Rate: Laboratory Tests 06/03/20 11:40: White Blood Count 10.1 Blood Pressure / Mean: Laboratory Tests 06/03/20 11:40: Creatinine 1.66H, Platelet Count 388, Total Bilirubin 0.5 Results/Orders Lab Results Laboratory Tests Test 06/03/20 11:40 06/03/20 12:15 Range/Units White Blood Count 10.1 4.3-11.0 10^3/uL Red Blood Count 3.27 L 4.35-5.85 10^6/uL Hemoglobin 9.9 L 11.5-16.0 G/DL Hematocrit 29 L 35-52 % Mean Corpuscular Volume 89 80-99 FL Mean Corpuscular Hemoglobin 30 25-34 PG Mean Corpuscular Hemoglobin Concent 34 32-36 G/DL Red Cell Distribution Width 13.7 10.0-14.5 % Platelet Count 388 130-400 10^3/uL Mean Platelet Volume 9.5 7.4-10.4 FL Immature Granulocyte % (Auto) 0 % Neutrophils (%) (Auto) 72 42-75 % Lymphocytes (%) (Auto) 15 12-44 % Monocytes (%) (Auto) 11 0-12 % Eosinophils (%) (Auto) 1 0-10 % Basophils (%) (Auto) 0 0-10 % Neutrophils # (Auto) 7.3 1.8-7.8 X 10^3 Lymphocytes # (Auto) 1.5 1.0-4.0 X 10^3 Monocytes # (Auto) 1.1 H 0.0-1.0 X 10^3 Eosinophils # (Auto) 0.1 0.0-0.3 10^3/uL Basophils # (Auto) 0.0 0.0-0.1 10^3/uL Immature Granulocyte # (Auto) 0.0 0.0-0.1 10^3/uL Sodium Level 126 L 135-145 MMOL/L Potassium Level 3.5 L 3.6-5.0 MMOL/L Chloride Level 87 L 98-107 MMOL/L Carbon Dioxide Level 26 21-32 MMOL/L Anion Gap 13 5-14 MMOL/L Blood Urea Nitrogen 28 H 7-18 MG/DL Creatinine 1.66 H 0.60-1.30 MG/DL Estimat Glomerular Filtration Rate 29 BUN/Creatinine Ratio 17 Glucose Level 98 70-105 MG/DL Calcium Level 8.1 L 8.5-10.1 MG/DL Corrected Calcium 8.7 8.5-10.1 MG/DL Total Bilirubin 0.5 0.1-1.0 MG/DL Aspartate Amino Transf (AST/SGOT) 21 5-34 U/L Alanine Aminotransferase (ALT/SGPT) 11 0-55 U/L Alkaline Phosphatase 149 H 40-136 U/L Total Protein 5.7 L 6.4-8.2 GM/DL Albumin 3.2 3.2-4.5 GM/DL Urine Color YELLOW Urine Clarity SL CLOUDY Urine pH 5.5 5-9 Urine Specific Reva 1.020 1.016-1.022 Urine Protein 2+ H NEGATIVE Urine Glucose (UA) NEGATIVE NEGATIVE Urine Ketones NEGATIVE NEGATIVE Urine Nitrite POSITIVE H NEGATIVE Urine Bilirubin NEGATIVE NEGATIVE Urine Urobilinogen 0.2 < = 1.0 MG/DL Urine Leukocyte Esterase TRACE H NEGATIVE Urine RBC (Auto) 1+ H NEGATIVE Urine RBC 0-2 /HPF Urine WBC 2-5 /HPF Urine Crystals NONE /LPF Urine Bacteria MODERATE H /HPF Urine Casts NONE /LPF Urine Mucus NEGATIVE /LPF Urine Culture Indicated YES My Orders Orders - MENDEZ,GEORGE L DO Cbc With Automated Diff (06/03/20 11:28) Comprehensive Metabolic Panel (06/03/20 11:28) Ua Culture If Indicated (06/03/20 11:28) Urine Culture (06/03/20 12:15) Vital Signs/I&O 06/03/20 11:05 Temp 36.3 Pulse 75 Resp 18 B/P (MAP) 143/60 (87) Pulse Ox 94 O2 Delivery Room Air Capillary Refill : Progress Note : Time: 12:57 Progress Note A shunt did well throughout her stay. Labs show known chronic hyponatremia, chronic kidney disease that is stable. Patient still has a mild urinary tract infection is currently on Keflex. [facility] Holter show that is susceptible. Discussed with family that they will need to follow-up with an outpatient appointment with either a GI specialist or a general surgeon for outpatient evaluation of her dysphagia. Recommend she gets a swallow study and a possible EGD. Patient is stable will be discharged home Departure Impression Primary Impression: Dysphagia Qualified Codes: R13.10 - Dysphagia, unspecified Additional Impression: Cystitis Disposition: HOME, SELF-CARE Condition: Stable Departure-Patient Inst. Referrals: [facility] [place] ([place]) Primary Care Physician HARJINDER AMBROCIO APRN (Family) Primary Care Physician Patient Instructions: Dysphagia (DC), Urinary Tract Infection, Adult (DC) Add. Discharge Instructions: Follow-up with your primary care provider to arrange for outpatient evaluation with either a GI specialist or general surgeon. Emergency department focuses on treating and ruling out life-threatening diseases. Whenever possible, a diagnosis is given. However, most patients are given an impression based on their history, physical exam, and workup during your brief time in the ER. Information about probable diagnosis and other educational material has been provided. Please take the time to read and understand this information. It is very important that you follow up with a physician as discussed during the visit today. Failure to adhere to your follow-up instructions may lead to severe disability, injury, or so please make sure to keep your appointments or obtain one as requested. Please keep in mind the emergency department is not designed to your primary care or "family doctor" and nonurgent issues are best evaluated by an outpatient physician GEORGE MENDEZ DO Jun 03, 2020 11:09
[2020-06-03 12:27] LABS: BACTERIA,URINE MODERATE /HPF; BILIRUBIN,URINE NEGATIVE (NEGATIVE); CLARITY,URINE SL CLOUDY; COLOR,URINE YELLOW; GLUCOSE, URINE (UA) NEGATIVE (NEGATIVE); KETONES,URINE NEGATIVE (NEGATIVE); LEUKOCYTE ESTERASE ,URINE TRACE (NEGATIVE); NITRITE,URINE POSITIVE (NEGATIVE); PH,URINE 5.5 (5-9); PROTEIN,URINE 2+ (NEGATIVE); RBC,URINE 0-2 /HPF
[2020-06-03 12:28] LABS: HEMATOCRIT 29 % (35-52); HEMOGLOBIN 9.9 G/DL (11.5-16.0); MEAN CORPUSCULAR HEMOGLOBIN 30 PG (25-34); MEAN CORPUSCULAR HGB CONC 34 G/DL (32-36); MEAN CORPUSCULAR VOLUME 89 FL (80-99); WHITE BLOOD COUNT 10.1 10^3/uL (4.3-11.0)
[2020-06-03 12:29] LABS: BASOPHILS % (AUTO) 0 % (0-10); EOSINOPHILS # (AUTO) 0.1 10^3/uL (0.0-0.3); EOSINOPHILS % (AUTO) 1 % (0-10); LYMPHOCYTES # (AUTO) 1.5 X 10^3 (1.0-4.0); LYMPHOCYTES % (AUTO) 15 % (12-44); MEAN PLATELET VOLUME 9.5 FL (7.4-10.4); MONOCYTES # (AUTO) 1.1 X 10^3 (0.0-1.0); MONOCYTES % (AUTO) 11 % (0-12); NEUTROPHILS # (AUTO) 7.3 X 10^3 (1.8-7.8); NEUTROPHILS % (AUTO) 72 % (42-75); PLATELET COUNT 388 10^3/uL (130-400)
--- NOTE | 2020-06-03 12:39 | NUR ---
Spoke with daughter via phone regarding update on pt.
[2020-06-03 12:41] LABS: POTASSIUM 3.5 MMOL/L (3.6-5.0)
[2020-06-03 12:42] LABS: ALBUMIN 3.2 GM/DL (3.2-4.5); BILIRUBIN,TOTAL 0.5 MG/DL (0.1-1.0); CALCIUM 8.1 MG/DL (8.5-10.1); CREATININE SERUM 1.66 MG/DL (0.60-1.30); TOTAL PROTEIN 5.7 GM/DL (6.4-8.2)
[2020-06-03 13:05] VITALS: BP 140/47
== END 2020-06-03 13:05 | disposition home or self-care (01) ==
LOC: EDUNIT# 10:57 → ER FS 10:59
DX: R13.10 Dysphagia, unspecified (principal); N30.90 Cystitis, unspecified without hematuria; N18.9 Chronic kidney disease, unspecified; Z85.038 Personal history of other malignant neoplasm of large intestine; Z88.2 Allergy status to sulfonamides
CPT/HCPCS: 36415; 51701; 80053; 81000; 85025; 87077; 87088; 87186

== ENCOUNTER → 2020-06-04 | Emergency (ER) | payer MEDICARE ==
[~2020-06-04] VITALS: Ht 162.6 cm; Wt 81.6 kg
[~2020-06-04] MED LIST changes: +CIPROFLOXACIN IV 400MG/200ML 200 ML IV ONE; +LEVOFLOXACIN 750 MG/150 ML IV 150 ML IV ONE; +NS IV 1000 ML 1,000 ML IV SCH
--- NOTE | 2020-06-04 10:36 | ED General ---
General Chief Complaint: General Problems/Pain Stated Complaint: GEN PAIN History of Present Illness Date Seen by Provider: Jun 04, 2020 Time Seen by Provider: 10:35 Initial Comments Patient presenting to emergency department for evaluation of generalized weakness or frequent falls that have occurred over the past one week. Patient reportedly lives with daughter and daughter notes that one week ago patient was walking normally on her own and now she is falling frequently. Patient denies any pain to me and says that she lost her balance with the fall this morning. She has history of renal insufficiency and follows with a user support analyst at [facility] in [place]. She was diagnosed with a urinary tract infection 5 days ago and has been on Keflex for 5 days and per the emergency department record last night she has finished a course of Keflex and the UTI was susceptible to Keflex although I do not have access to the culture results. She also had hyponatremia but no signs of sepsis as she has afebrile and did not have leukocytosis. She is in no obvious distress with normal vital signs other than mild hypoxia at 86% noted. Allergies and Home Medications Allergies Coded Allergies: Sulfa (Sulfonamide Antibiotics) (Verified Allergy, Unknown, 04/17/20) Home Medications Cephalexin 500 Mg Tablet, 500 MG PO TID Prescribed by: ELIZA SHEN on 05/15/20 1312 Patient Home Medication List Home Medication List Reviewed: Yes Review of Systems Review of Systems Constitutional: weakness EENTM: no symptoms reported Respiratory: no symptoms reported Cardiovascular: no symptoms reported Gastrointestinal: no symptoms reported Genitourinary: no symptoms reported Musculoskeletal: no symptoms reported Skin: no symptoms reported Psychiatric/Neurological: No Symptoms Reported All Other Systems Reviewed Negative Unless Noted: Yes Past Lzultfa-Orcsqr-Eghixb Hx Patient Social History 2nd Hand Smoke Exposure: No Recent Hopitalizations: No Seasonal Allergies Seasonal Allergies: No Past Medical History Surgeries: Yes (colon resection) Abdominal, Appendectomy, Gallbladder, Hysterectomy Respiratory: No Cardiac: Yes Hypertension Neurological: No 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 Disorders: 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 oz. kg; 22.00 BMI Method: General Appearance: Chronically ill HEENT: PERRL/EOMI Neck: Supple Respiratory: Lungs Clear, No Respiratory Distress Cardiovascular: Regular Rate, Rhythm Gastrointestinal: Non Tender, Soft Back: Normal Inspection Extremity: Normal Capillary Refill, No Pedal Edema Neurologic/Psychiatric: Alert, Oriented x3, No Motor/Sensory Deficits Skin: Warm/Dry Progress/Results/Core Measures Suspected Sepsis SIRS Temperature: Pulse: Respiratory Rate: Laboratory Tests 06/04/20 11:05: White Blood Count 10.6 Blood Pressure / Mean: Laboratory Tests 06/04/20 11:05: Platelet Count 455H Results/Orders Lab Results Laboratory Tests Test 06/04/20 11:05 Range/Units White Blood Count 10.6 4.3-11.0 10^3/uL Red Blood Count 3.63 L 4.35-5.85 10^6/uL Hemoglobin 10.9 L 11.5-16.0 G/DL Hematocrit 32 L 35-52 % Mean Corpuscular Volume 88 80-99 FL Mean Corpuscular Hemoglobin 30 25-34 PG Mean Corpuscular Hemoglobin Concent 34 32-36 G/DL Red Cell Distribution Width 13.5 10.0-14.5 % Platelet Count 455 H 130-400 10^3/uL Mean Platelet Volume 9.0 7.4-10.4 FL Immature Granulocyte % (Auto) 1 % Neutrophils (%) (Auto) 69 42-75 % Lymphocytes (%) (Auto) 17 12-44 % Monocytes (%) (Auto) 12 0-12 % Eosinophils (%) (Auto) 2 0-10 % Basophils (%) (Auto) 0 0-10 % Neutrophils # (Auto) 7.3 1.8-7.8 X 10^3 Lymphocytes # (Auto) 1.8 1.0-4.0 X 10^3 Monocytes # (Auto) 1.2 H 0.0-1.0 X 10^3 Eosinophils # (Auto) 0.2 0.0-0.3 10^3/uL Basophils # (Auto) 0.0 0.0-0.1 10^3/uL Immature Granulocyte # (Auto) 0.5 H 0.0-0.1 10^3/uL My Orders Orders - ALEXEY ROBERSON DO Cbc With Automated Diff (06/04/20 10:36) Comprehensive Metabolic Panel (06/04/20 10:36) Troponin I Fs (06/04/20 10:36) Ekg Tracing (06/04/20 10:36) Probnp Fs (06/04/20 10:36) Protime With Inr (06/04/20 10:36) Partial Thromboplastin Time (06/04/20 10:36) Chest 1 View Ap/Pa Only (06/04/20 10:36) Ct Head Wo (06/04/20 10:36) Ns Iv 1000 Ml (Sodium Chloride 0.9%) (06/04/20 10:45) Ciprofloxacin Iv 400mg/200ml (Cipro Iv S (06/04/20 10:45) Vital Signs/I&O 06/04/20 10:19 Temp 36.6 Pulse 75 Resp 16 B/P (MAP) 184/64 (104) Pulse Ox 93 O2 Delivery Room Air Capillary Refill : Progress Note : Progress Note Patient does have hypoxia and she was put on oxygen. She also has hyponatremia and signs of urine tract infection from last night's results. Daughter is wanting her admitted to [facility] and I called them and they're completely full and the daughter second preference was [facility] and Dr. Ramon accepted [facility] for transfer there. Patient may have a pneumonia based off her chest x- ray and hypoxia so she was placed on Levaquin which would cover UTI and pneumonia. Patient will be transferred in stable condition. Departure Impression Primary Impression: Urinary tract infection Qualified Codes: N39.0 - Urinary tract infection, site not specified Additional Impressions: Hypoxia Hyponatremia Renal insufficiency Pneumonia Disposition: XFER SHT-TRM HOSP Condition: Improved Transfer Transfer Reason: Exceeds level of care Transfer Facility: [facility] Method of Transfer: EMS Departure-Patient Inst. Referrals: [facility] ([facility]) Primary Care Physician HARJINDER AMBROCIO APRN (Family) Primary Care Physician ALEXEY ROBERSON DO Jun 04, 2020 10:35
--- NOTE | 2020-06-04 11:10 | Diagnostic Imaging Report ---
EXAMINATION: Chest 1 view HISTORY: Weakness. COMPARISON: 04/17/2020. FINDINGS: Patchy bibasilar opacities are seen. No large pleural effusion or pneumothorax. The cardiac silhouette is prominent. No acute osseous abnormalities. IMPRESSION: 1. Patchy bibasilar opacities, which may represent atelectasis, edema, or infection. 2. Cardiomegaly. Dictated by: Dictated on workstation # [id number]
[2020-06-04 11:15] LABS: HEMATOCRIT 32 % (35-52); HEMOGLOBIN 10.9 G/DL (11.5-16.0); LYMPHOCYTES % (AUTO) 17 % (12-44); MEAN CORPUSCULAR HEMOGLOBIN 30 PG (25-34); MEAN CORPUSCULAR HGB CONC 34 G/DL (32-36); MEAN CORPUSCULAR VOLUME 88 FL (80-99); NEUTROPHILS % (AUTO) 69 % (42-75); PLATELET COUNT 455 10^3/uL (130-400); WHITE BLOOD COUNT 10.6 10^3/uL (4.3-11.0)
[2020-06-04 11:16] LABS: BASOPHILS % (AUTO) 0 % (0-10); EOSINOPHILS # (AUTO) 0.2 10^3/uL (0.0-0.3); EOSINOPHILS % (AUTO) 2 % (0-10); LYMPHOCYTES # (AUTO) 1.8 X 10^3 (1.0-4.0); MONOCYTES # (AUTO) 1.2 X 10^3 (0.0-1.0); MONOCYTES % (AUTO) 12 % (0-12); NEUTROPHILS # (AUTO) 7.3 X 10^3 (1.8-7.8)
--- NOTE | 2020-06-04 11:28 | Diagnostic Imaging Report ---
CLINICAL INDICATION: Patient complaints all over pain and headache. EXAM: Axial CT scan of the brain without IV contrast with coronal and sagittal reformatted images. Auto Exposure Controls were utilized during the CT exam to meet ALARA standards for radiation dose reduction. COMPARISON: Head CT without contrast dated 04/17/2020. FINDINGS: There is skull streak artifact which obscures portions of the brain stem, posterior fossa, and portions of the brain near the skull base. There is no evidence of acute cerebral infarct, intracranial hemorrhage, or gross mass effect. The brain parenchymal volume appears appropriate for patient's age. There is no significant change to the diffuse patchy and confluent areas of low-attenuation white matter changes involving both cerebral hemispheres, likely representing chronic small vessel ischemic disease and leukoaraiosis. There is normal robert-white matter distinction. There is no significant midline shift or herniation. There is no evidence of hydrocephalus. The basal cisterns are unremarkable. The skull, extracranial soft tissue, and orbits are unremarkable. There is minimal mucosal thickening involving left maxillary sinus. Temporal bones show no significant abnormality. IMPRESSION: 1: Stable CT scan of the brain with no evidence of interval acute intracranial process. 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 Dictated by: Dictated on workstation # [id number]
[2020-06-04 11:42] LABS: ALANINE AMINOTRANSFERASE 15 U/L (0-55); ALKALINE PHOSPHATASE 181 U/L (40-136); BILIRUBIN,TOTAL 0.6 MG/DL (0.1-1.0); BUN/CREATININE RATIO 16; CALCIUM 8.9 MG/DL (8.5-10.1); CARBON DIOXIDE 28 MMOL/L (21-32); CHLORIDE 85 MMOL/L (98-107); CREATININE SERUM 1.67 MG/DL (0.60-1.30); GFR ESTIMATED 29; GLUCOSE 76 MG/DL (70-105); POTASSIUM 3.6 MMOL/L (3.6-5.0); SODIUM 126 MMOL/L (135-145)
[2020-06-04 11:43] LABS: ALBUMIN 3.6 GM/DL (3.2-4.5); TOTAL PROTEIN 6.4 GM/DL (6.4-8.2)
[2020-06-04 11:44] LABS: INR 0.9 (0.8-1.4); PROTHROMBIN TIME PATIENT 12.4 SEC (12.2-14.7)
[2020-06-04 11:49] VITALS: BP 175/67
--- NOTE | 2020-06-04 12:26 | NUR ---
Gisella is requesting for rapid COVID swab. Fisheries Technical Officer is coming and swab with be done on arrival to get it back to [place] within an hour.
--- NOTE | 2020-06-04 14:10 | NUR ---
Fluids will continue during transport with EMS. EMS was notified that they need PPE for transportation.
== END ==
LOC: EDUNIT# 10:19 → ER FS 10:20
DX: N39.0 Urinary tract infection, site not specified (principal); R09.02 Hypoxemia; E87.1 Hypo-osmolality and hyponatremia; N28.9 Disorder of kidney and ureter, unspecified; J18.9 Pneumonia, unspecified organism; Z20.828 Contact with and (suspected) exposure to other viral communicable diseases; Z85.038 Personal history of other malignant neoplasm of large intestine; Z88.2 Allergy status to sulfonamides
CPT/HCPCS: 36415; 70450; 71045; 80053; 83605; 83880; 84484; 85025; 85610; 85730; 87040; U0002; 87635

== ENCOUNTER 2020-06-17 01:42 | Emergency (ER) | payer MEDICARE ==
[~2020-06-17 01:42] MED LIST changes: -CIPROFLOXACIN IV 400MG/200ML 200 ML IV ONE; -LEVOFLOXACIN 750 MG/150 ML IV 150 ML IV ONE; -NS IV 1000 ML 1,000 ML IV SCH
--- NOTE | 2020-06-17 01:55 | ED Fall/Injury ---
General Stated Complaint: FALL Source: patient Exam Limitations: no limitations History of Present Illness Date Seen by Provider: Jun 17, 2020 Time Seen by Provider: 01:38 Initial Comments the patient presents to the ER by EMS from home with chief complaint of a fall just prior to arrival. She said she did not lose consciousness nor strike her head. She was going to the bathroom and has no numbness tingling weakness. No dysuria, diarrhea constipation fevers chills cough shortness of air. She has no prior history of surgery to this limb. EMS states she was able to get up with some help and walk to their cot. She lives with her son. She is not on blood thinner. Allergies and Home Medications Allergies Coded Allergies: Sulfa (Sulfonamide Antibiotics) (Verified Allergy, Unknown, 04/17/20) Home Medications Cephalexin 500 Mg Tablet, 500 MG PO TID Prescribed by: ELIZA SHEN on 05/15/20 1312 Patient Home Medication List Home Medication List Reviewed: Yes Review of Systems Review of Systems Constitutional: No chills, No dizziness Eyes: Denies Blindness, Denies Blurred Vision Ears, Nose, Mouth, Throat: denies ear pain, denies nose pain Respiratory: No cough, No short of breath Cardiovascular: No chest pain; edema Gastrointestinal: No abdominal pain, No constipation, No diarrhea Musculoskeletal: see HPI; No back pain; joint pain All Other Systems Reviewed Negative Unless Noted: Yes Past Rszcucb-Lyhgzj-Vpaibj Hx Patient Social History Alcohol Use: Denies Use Recreational Drug Use: No Smoking Status: Never a Smoker 2nd Hand Smoke Exposure: No Recent Foreign Travel: No Contact w/Someone Who Travel: No Recent Hopitalizations: No Seasonal Allergies Seasonal Allergies: No Past Medical History Surgeries: Yes (colon resection) Abdominal, Appendectomy, Gallbladder, Hysterectomy Respiratory: No Cardiac: Yes Hypertension Neurological: No 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 oz. kg; 30.00 BMI Method: General Appearance: WD/WN, no apparent distress HEENT: PERRL/EOMI, TMs normal, pharynx normal, other (negative for Khan sign or raccoon eyes) Neck: non-tender, full range of motion, supple, normal inspection Cardiovascular: normal peripheral pulses, regular rate, rhythm Respiratory: lungs clear, no respiratory distress, no accessory muscle use Peripheral Pulses: 2+ Dorsalis Pedis (R), 2+ Left Dors-Pedis (L) Gastrointestinal: normal bowel sounds, soft Pelvic: normal external exam Back: normal inspection, no vertebral tenderness Extremities: normal range of motion, normal inspection, other (tenderness to palpation over the right greater trochanter) Neurologic/Psychiatric: no motor/sensory deficits, alert, normal mood/affect, oriented x 3 Skin: normal color, warm/dry Progress/Results/Core Measures Results/Orders My Orders Orders - TRUDY MUNSON Hip 2-3 View Right (06/17/20 01:48) Vital Signs/I&O 06/17/20 01:44 Temp 36.8 Pulse 73 Resp 16 B/P (MAP) 183/82 (115) Pulse Ox 96 O2 Delivery Room Air Progress Progress Note : Time: 01:53 Progress Note She describes sliding down a wall and ending up against a table in her right flank and hip which is where her pain is. I suspect mostly she has soft tissue injury. We have discussed imaging versus observation and she has opted for observation since her son lives with her. We will obtain x-ray of her right hip. She declines blood or urine if her hip is not fractured. Diagnostic Imaging Diagonstic Imaging: Xray Plain Films/CT/US/NM/MRI: hip (r) Comments No acute osseous abnormalities. Reviewed: Reviewed by Me Departure Impression Primary Impression: Fall Qualified Codes: W19.XXXA - Unspecified fall, initial encounter Additional Impressions: Right hip pain Right low back pain Qualified Codes: M54.5 - Low back pain Disposition: 01 HOME, SELF-CARE Condition: Stable Departure-Patient Inst. Decision time for Depature: 02:30 Referrals: [facility] (PCP) Primary Care Physician HARJINDER AMBROCIO APRN (Family) Primary Care Physician Patient Instructions: Low Back Pain (DC), Hip Pain Add. Discharge Instructions: Drink plenty of fluids. Tylenol and ibuprofen as necessary for pain. Heating pads alternated with ice for the first couple days can be helpful. Topical creams such as icy hot or Biofreeze. If you're still having significant pain or disability over the next couple days then you should follow-up with your primary care doctor for reevaluation. TRUDY MUNSON Jun 17, 2020 01:55
[2020-06-17 02:41] VITALS: BP 176/70
[2020-06-17] MEDS ORDERED: ACETAMINOPHEN 500 MG TAB (TYLENOL) PO ONE ×2 (02:45)
--- NOTE | 2020-06-17 06:36 | Diagnostic Imaging Report ---
Indication: Fall with right hip pain AP view of the pelvis is obtained with coned AP and frog-leg views of right hip. FINDINGS: There are surgical suture in the central pelvis. No acute fracture or dislocation is identified. No abnormal lytic or sclerotic focus is seen, and there is no radiopaque foreign body. IMPRESSION: No acute abnormality. Dictated by: Dictated on workstation # [id number]
== END 2020-06-17 02:43 | disposition home or self-care (01) ==
LOC: EDUNIT# 01:42 → ER FS 01:46
DX: M25.551 Pain in right hip (principal); M54.5 Low back pain; Z20.828 Contact with and (suspected) exposure to other viral communicable diseases; Z85.038 Personal history of other malignant neoplasm of large intestine; Z88.2 Allergy status to sulfonamides
CPT/HCPCS: 73502

== ENCOUNTER → 2020-07-02 | Outpatient (CLI) | payer MEDICARE ==
--- NOTE | 2020-07-02 09:22 | Diagnostic Imaging Report ---
CLINICAL INDICATION: Patient with history of vertebral body fractures. Patient has back pain. No known injury. EXAM: X-ray of the lumbar spine, 3 views. COMPARISON: X-ray of the lumbar spine dated 05/16/2020. 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 There is significant osteopenia which greatly limits evaluation of the lumbar vertebral body bony detail. The L3, L4, and L5 vertebra are greatly obscured and interval subtle fractures in this region may be missed. Otherwise, the visualized portions involving the lumbar vertebra appear to have a similar amount of loss of height with multiple compression deformities seen. There are hypertrophic spurs seen throughout the lumbar spine and facet arthropathy. Sclerosis of the sacroiliac joints is seen. IMPRESSION: 1. Very limited evaluation of the lumbar spine due to osteopenia which limits visualization of bony detail. 2. There is grossly similar loss of height of the multiple lumbar vertebral body compression fracture deformities, as visualized. If the patient is able to get an MRI, this would better evaluate for acute or subacute fractures. If MRI is unable to be obtained, then a CT scan would better evaluate. 3. 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 Dictated by: Dictated on workstation # [id number]
--- NOTE | 2020-07-02 09:35 | Diagnostic Imaging Report ---
Clinical indication: Patient history of fractures. No known injury. Patient with thoracic pain. EXAM: X-ray of the lumbar spine, 3 views. COMPARISON: X-ray of the thoracic spine dated 05/16/2020. 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 Diffuse osteopenia is seen which limits evaluation of bony detail. There are multiple compression deformities of the thoracic vertebra which appear to not be significantly changed in the interim. There are degenerative spurs involving the thoracic spine. There is facet arthropathy. IMPRESSION: 1. Very limited evaluation of the thoracic spine bony detail due to osteopenia. 2. There are multiple thoracic spine compression deformities which appear grossly similar compared to the prior study. It patient is able to get an MRI, an MRI would better evaluate. If the patient is unable to get an MRI, a CT scan would better evaluate for interval fracture. 3. Thoracic spine degenerative disease. Dictated by: Dictated on workstation # [id number]
== END ==
LOC: RAD FS 08:25
PROVIDERS: ATTEND Neurological Surgery
DX: S22.080D Wedge compression fracture of T11-T12 vertebra, subsequent encounter for fracture with routine healing (principal); S32.010D Wedge compression fracture of first lumbar vertebra, subsequent encounter for fracture with routine healing; M47.816 Spondylosis without myelopathy or radiculopathy, lumbar region; M47.814 Spondylosis without myelopathy or radiculopathy, thoracic region
CPT/HCPCS: 72070; 72100

== ENCOUNTER → 2020-08-01 | Outpatient (CLI) | payer MEDICARE ==
--- NOTE | 2020-08-01 12:38 | Diagnostic Imaging Report ---
EXAM: Left hip at 11:27 AM INDICATION: Hip pain. AP and lateral views were obtained. FINDINGS: The abdomen exam performed on 05/15/2020 noted subacute fractures of the pubic rami on the left. In the interval since the prior study, at least a moderate amount of callus formation has developed about both fracture sites, particularly the inferior pubic ramus fracture. The main fracture fragments remain essentially nondisplaced. There is no fracture or acute bony abnormality noted. 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 The soft tissues are unremarkable. IMPRESSION: There are healing fractures of the pubic rami on the left. There is no acute bony abnormality appreciated. Dictated by: Dictated on workstation # [id number]
== END ==
LOC: RAD FS 11:25
PROVIDERS: ATTEND Orthopaedic Surgery
DX: S32.592D Other specified fracture of left pubis, subsequent encounter for fracture with routine healing (principal); X58.XXXD Exposure to other specified factors, subsequent encounter
CPT/HCPCS: 73502

== ENCOUNTER → 2020-08-14 | Outpatient (CLI) | payer MEDICARE ==
[2020-08-14 09:00] LABS: HEMATOCRIT 33 % (35-52); HEMOGLOBIN 10.9 G/DL (11.5-16.0); MEAN CORPUSCULAR HEMOGLOBIN 30 PG (25-34); MEAN CORPUSCULAR HGB CONC 33 G/DL (32-36); MEAN CORPUSCULAR VOLUME 92 FL (80-99); WHITE BLOOD COUNT 7.4 10^3/uL (4.3-11.0)
[2020-08-14 09:01] LABS: BASOPHILS % (AUTO) 0 % (0-10); EOSINOPHILS # (AUTO) 0.2 10^3/uL (0.0-0.3); EOSINOPHILS % (AUTO) 3 % (0-10); LYMPHOCYTES # (AUTO) 2.3 X 10^3 (1.0-4.0); LYMPHOCYTES % (AUTO) 31 % (12-44); MEAN PLATELET VOLUME 10.1 FL (7.4-10.4); MONOCYTES # (AUTO) 0.7 X 10^3 (0.0-1.0); MONOCYTES % (AUTO) 9 % (0-12); NEUTROPHILS # (AUTO) 4.2 X 10^3 (1.8-7.8); NEUTROPHILS % (AUTO) 56 % (42-75); PLATELET COUNT 303 10^3/uL (130-400)
[2020-08-14 09:02] LABS: BILIRUBIN,URINE NEGATIVE (NEGATIVE); CLARITY,URINE CLEAR; COLOR,URINE YELLOW; GLUCOSE, URINE (UA) NEGATIVE (NEGATIVE); KETONES,URINE NEGATIVE (NEGATIVE); LEUKOCYTE ESTERASE ,URINE NEGATIVE (NEGATIVE); NITRITE,URINE NEGATIVE (NEGATIVE); PROTEIN,URINE TRACE (NEGATIVE)
[2020-08-14 09:03] LABS: BACTERIA,URINE NEGATIVE /HPF; WBC,URINE 0-2 /HPF
[2020-08-14 09:16] LABS: CALCIUM 9.2 MG/DL (8.5-10.1); CREATININE SERUM 1.95 MG/DL (0.60-1.30); POTASSIUM 4.5 MMOL/L (3.6-5.0)
[2020-08-14 09:17] LABS: ALBUMIN 3.8 GM/DL (3.2-4.5)
[2020-08-14 15:23] LABS: PHOSPHORUS 4.7 MG/DL (2.3-4.7)
== END ==
LOC: LAB FS 08:27
PROVIDERS: ATTEND Internal Medicine
DX: N18.4 Chronic kidney disease, stage 4 (severe) (principal); E87.5 Hyperkalemia; R82.90 Unspecified abnormal findings in urine
CPT/HCPCS: 36415; 80069; 81000; 82570; 84156; 85025

== ENCOUNTER → 2020-12-12 | Outpatient (CLI) | payer MEDICARE ==
[2020-12-12 11:09] LABS: ALBUMIN 3.9 GM/DL (3.2-4.5); CALCIUM 9.2 MG/DL (8.5-10.1); CREATININE SERUM 2.1 MG/DL (0.60-1.30)
[2020-12-12 13:14] LABS: BACTERIA,URINE TRACE /HPF; BILIRUBIN,URINE NEGATIVE (NEGATIVE); CLARITY,URINE CLEAR; COLOR,URINE YELLOW; GLUCOSE, URINE (UA) NEGATIVE (NEGATIVE); KETONES,URINE NEGATIVE (NEGATIVE); LEUKOCYTE ESTERASE ,URINE TRACE (NEGATIVE); NITRITE,URINE NEGATIVE (NEGATIVE); PROTEIN,URINE NEGATIVE (NEGATIVE)
[2020-12-12 13:17] LABS: WHITE BLOOD COUNT 7.4 10^3/uL (4.3-11.0)
[2020-12-12 13:18] LABS: BASOPHILS % (AUTO) 0 % (0-10); EOSINOPHILS # (AUTO) 0.3 10^3/uL (0.0-0.3); EOSINOPHILS % (AUTO) 5 % (0-10); HEMATOCRIT 32 % (35-52); HEMOGLOBIN 10.5 G/DL (11.5-16.0); LYMPHOCYTES # (AUTO) 2.3 X 10^3 (1.0-4.0); LYMPHOCYTES % (AUTO) 31 % (12-44); MEAN CORPUSCULAR HEMOGLOBIN 30 PG (25-34); MEAN CORPUSCULAR HGB CONC 32 G/DL (32-36); MEAN CORPUSCULAR VOLUME 94 FL (80-99); MEAN PLATELET VOLUME 10.1 FL (7.4-10.4); MONOCYTES # (AUTO) 0.7 X 10^3 (0.0-1.0); MONOCYTES % (AUTO) 9 % (0-12); NEUTROPHILS # (AUTO) 4.1 X 10^3 (1.8-7.8); NEUTROPHILS % (AUTO) 55 % (42-75); PLATELET COUNT 248 10^3/uL (130-400)
[2020-12-12 15:06] LABS: PHOSPHORUS 4.1 MG/DL (2.3-4.7)
== END ==
LOC: LAB FS 09:19
PROVIDERS: ATTEND Internal Medicine
DX: N18.4 Chronic kidney disease, stage 4 (severe) (principal)
CPT/HCPCS: 36415; 80069; 81000; 82570; 84156; 85025; 87088

== ENCOUNTER 2021-03-05 10:05 | Emergency (ER) | payer MEDICARE, OTHER ==
[~2021-03-05] VITALS: Ht 162 cm; Wt 56.0 kg
[2021-03-05] MEDS ORDERED: FLUO40CR8 (10:19)
[2021-03-05] MEDS ORDERED: OXYB5TAB13 (10:19)
[2021-03-05] MEDS ORDERED: CITA20TA9 (10:19)
[2021-03-05] MEDS ORDERED: CALC0.253 (10:19)
[2021-03-05] MEDS ORDERED: AMLO2.5T4 (10:19)
[2021-03-05] MEDS ORDERED: TIZA-169 (10:19)
[2021-03-05] MEDS ORDERED: lorazepam (10:19)
[2021-03-05] MEDS ORDERED: ACETAMINOPHEN 500 MG TAB (TYLENOL) PO STA (10:30)
--- NOTE | 2021-03-05 10:37 | ED Fall/Injury ---
General Chief Complaint: Chest Wall Stated Complaint: FALL Nursing Triage Note: PT ROLLED OUT OF BED SOMETIME IN THE MIDDLE OF THE NIGHT. EMS WAS CALLED AND SHE WAS CHECKED OUT AND WAS NOT BROUGHT TO THE ER. PT C/O RIGHT SIDE RIB/FLANK/BACK PAIN. NO LOSS OF CONSCIOUSNESS AND DID NOT HIT HER HEAD. Source: patient Exam Limitations: no limitations History of Present Illness Date Seen by Provider: Mar 05, 2021 Time Seen by Provider: 10:23 Initial Comments Here with report of falling out of bed during the night. She does have a high bed and landed on the floor. Complains of right rib pain. Unsure if she hit her head and may have a little neck pain. Denies loss of consciousness. EMS did evaluate last night and patient did not require transport. Arrives today for worsening right rib pain. Denies breathing problems, fever, chills, shortness of breath, nausea or vomiting. Denies significant headache currently. Occurred: this morning (Very early at around midnight) Severity: mild, moderate Injuries/Pain Location: neck, chest Context: other (Rolled over out of bed) Loss of Consciousness: no loss of consciousness Modifying Factors: Improves With Movement, Improves With Rest Associated Symptoms (Fall): No Abdominal Pain, No Confusion, No Headache, No Nausea/Vomiting; Neck Pain; No Shortness of Air, No Trouble Walking Allergies and Home Medications Allergies Coded Allergies: Sulfa (Sulfonamide Antibiotics) (Verified Allergy, Unknown, 04/17/20) Home Medications Cephalexin 500 Mg Tablet, 500 MG PO TID Prescribed by: ELIZA SHEN on 05/15/20 1312 Patient Home Medication List Home Medication List Reviewed: Yes Review of Systems Review of Systems Constitutional: see HPI; No chills, No fever Eyes: No Symptoms Reported Ears, Nose, Mouth, Throat: no symptoms reported Respiratory: no symptoms reported Cardiovascular: see HPI; No edema Gastrointestinal: No nausea, No vomiting Musculoskeletal: see HPI All Other Systems Reviewed Negative Unless Noted: Yes Past Eltsikr-Ujngdb-Hfprcz Hx Patient Social History Tobacco Use?: No Use of E-Cig and/or Vaping dev: No Substance use?: No Alcohol Use?: No Pt feels they are or have been: No Seasonal Allergies Seasonal Allergies: No Past Medical History Surgeries: Yes (colon resection) Abdominal, Appendectomy, Gallbladder, Hysterectomy Respiratory: No Cardiac: Yes Hypertension Neurological: No 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 Disorders: 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 Genitourinary: Yes (stage 4) Renal Failure Gastrointestinal: No Musculoskeletal: Yes Degenerate Disk Disease, Osteoporosis, Chronic Back Pain Endocrine: No HEENT: No Cancer: Yes Colon Did You Recieve Any Treatments: Yes What Type of Treatment Did You: Surgical Intervention Psychosocial: No Integumentary: No Blood Disorders: No Family Medical History Reviewed Nursing Family Hx Physical Exam Vital Signs Vital Signs - First Documented 03/05/21 10:10 Temp 36.1 Pulse 63 Resp 20 B/P (MAP) 171/95 (120) Pulse Ox 97 O2 Delivery Room Air Capillary Refill : Less Than 3 Seconds Height, Weight, BMI Height: '" Weight: lbs. oz. kg; 21.00 BMI Method: General Appearance: WD/WN, no apparent distress HEENT: PERRL/EOMI Neck: non-tender, full range of motion, supple Cardiovascular: regular rate, rhythm, no murmur Respiratory: no respiratory distress, crackles (Right base), other (Tender along the right lateral rib margin below the breast line.) Gastrointestinal: non tender, soft Extremities: normal range of motion, non-tender Neurologic/Psychiatric: alert, oriented x 3 Skin: warm/dry, other (Has healing laser therapy lesions to the forehead that are not new. No abrasions or wounds from the fall. Right chest wall is without ecchymosis or abrasions.) Susana Coma Score Best Eye Response: (4) Open Spontaneously Best Verbal Response: (5) Oriented Best Motor Response: (6) Obeys Commands Progress/Results/Core Measures Results/Orders My Orders Orders - DENIA PRAJAPATI MD Ct Head/Cervical Spine Wo (03/05/21 10:30) Ct Chest Wo (03/05/21 10:30) Acetaminophen Tablet (Tylenol Tablet) (03/05/21 10:30) Vital Signs/I&O 03/05/21 10:10 Temp 36.1 Pulse 63 Resp 20 B/P (MAP) 171/95 (120) Pulse Ox 97 O2 Delivery Room Air Blood Pressure Mean: 120 Progress Progress Note : Progress Note Seen and evaluated. Tylenol 1 [address] We will CT the chest and add head and neck given fall in height as well as age. This was discussed at length with the patient and family who agree. Monitor patient. 1145: No acute fractures or other abnormalities noted on CT scans. Patient is feeling a little better. Believe this is mostly related to rib contusion. She does have old compression fractures but are unchanged. Discharged home with return precautions. Family and patient verbalized understanding of instructions and agreement with plan. Diagnostic Imaging Diagonstic Imaging: CT Plain Films/CT/US/NM/MRI: chest Comments [facility], [place] NAME: TAHIR BUTCHER [facility] REC#: [id number] PT STATUS: REG ER : 1930 PHYSICIAN: DENIA PRAJAPATI MD ADMIT DATE: 03/05/21/ER FS Draft Date of Exam:03/05/21 CT CHEST WO EXAMINATION: CT chest without contrast. TECHNIQUE: Multiple contiguous axial images were obtained through the chest without the use of intravenous contrast. All CT scans use one or more of the following dose optimizing techniques: automated exposure control, MA and/or KvP adjustment based on patient size and exam type or iterative reconstruction. HISTORY: Fall, chest pain COMPARISON: 04/17/2020 FINDINGS: There is no edema or pneumonia. No pleural effusion. No pneumothorax. No suspicious nodules. There is mild basilar atelectasis. There is no axillary or supraclavicular lymphadenopathy. There is no mediastinal lymphadenopathy. Heart size is normal. There are mild coronary artery calcifications. No pericardial effusion. Aorta is normal in caliber. Limited views of the upper abdomen show changes of cholecystectomy. There are no suspicious osseus lesions. The T11, T12 and L1 compression fractures which are unchanged from prior exam. There are T6 and T7 compression fractures which are unchanged from prior exam. IMPRESSION: 1. No acute abnormality in the chest. Dictated on workstation # [id number] Dict: 03/05/21 1106 Trans: 03/05/21 1111 [facility] [id number] Interpreted by: TIFFANY HDZ MD Electronically signed by: Diagonstic Imaging: CT Plain Films/CT/US/NM/MRI: c-spine, head [facility] [place] [place] NAME: TAHIR BUTCHER [facility] REC#: [id number] PT STATUS: REG ER : 1930 PHYSICIAN: DENIA PRAJAPATI MD ADMIT DATE: 03/05/21/ER FS Draft Date of Exam:03/05/21 CT HEAD/CERVICAL SPINE WO PROCEDURE: CT head and CT cervical spine without contrast. TECHNIQUE: Multiple contiguous axial images were obtained through the brain and cervical spine without the use of intravenous contrast. Sagittal and coronal reformations through the cervical spine were then performed. Auto Exposure Controls were utilized during the CT exam to meet ALARA standards for radiation dose reduction. INDICATION: Head and neck trauma, fall. COMPARISON: 04/16/2020 CT HEAD: Stable age-related cerebral volume loss and chronic microvascular changes are present. There is no focus of acute ischemia or hemorrhage. There is no extra-axial fluid collection or mass. There is no ventriculomegaly. No skull fracture identified. Paranasal sinuses and mastoids are clear. IMPRESSION: No acute intracranial abnormalities. CT CERVICAL SPINE: Alignment is normal. There is no subluxation or fracture. Mild diffuse degenerative disc disease and facet joint arthropathy is seen. Soft tissues are grossly unremarkable. There is some distention of the upper thoracic esophagus. IMPRESSION: No traumatic malalignment or fracture. Dictated on workstation # [id number] Dict: 03/05/21 1131 Trans: 03/05/21 1135 [facility] [id number] Interpreted by: VERONICA GREGORY Electronically signed by: Departure Impression Primary Impression: Contusion of rib on right side Qualified Codes: S20.211A - Contusion of right front wall of thorax, initial encounter Additional Impression: Fall Qualified Codes: W19.XXXA - Unspecified fall, initial encounter Disposition: 01 HOME, SELF-CARE Condition: Stable Departure-Patient Inst. Decision time for Depature: 11:50 Referrals: DANIEL ROMAN MD (PCP/Family) Primary Care Physician Patient Instructions: Bruised Rib (DC), Preventing Falls ED Add. Discharge Instructions: All discharge instructions reviewed with patient and/or family. Voiced understanding. You may take Tylenol/acetaminophen 650 mg (2 regular strength Tylenol) every 6 hours as needed for pain. Follow-up with your doctor next week for recheck and further evaluation if not improving. Return for worse pain, fever, vomiting, weakness, breathing problems or other concerns as needed. Continue home medications as previously prescribed. Copy Copies To 1: DANIEL ROMAN MD, TIMOTHY D MD Mar 05, 2021 10:37
--- NOTE | 2021-03-05 11:12 | Diagnostic Imaging Report ---
EXAMINATION: CT chest without contrast. TECHNIQUE: Multiple contiguous axial images were obtained through the chest without the use of intravenous contrast. All CT scans use one or more of the following dose optimizing techniques: automated exposure control, MA and/or KvP adjustment based on patient size and exam type or iterative reconstruction. HISTORY: Fall, chest pain COMPARISON: 04/17/2020 FINDINGS: There is no edema or pneumonia. No pleural effusion. No pneumothorax. No suspicious nodules. There is mild basilar atelectasis. There is no axillary or supraclavicular lymphadenopathy. There is no mediastinal lymphadenopathy. Heart size is normal. There are mild coronary artery calcifications. No pericardial effusion. Aorta is normal in caliber. Limited views of the upper abdomen show changes of cholecystectomy. There are no suspicious osseus lesions. The T11, T12 and L1 compression fractures which are unchanged from prior exam. There are T6 and T7 compression fractures which are unchanged from prior exam. IMPRESSION: 1. No acute abnormality in the chest. Dictated by: Dictated on workstation # [id number]
--- NOTE | 2021-03-05 11:36 | Diagnostic Imaging Report ---
PROCEDURE: CT head and CT cervical spine without contrast. TECHNIQUE: Multiple contiguous axial images were obtained through the brain and cervical spine without the use of intravenous contrast. Sagittal and coronal reformations through the cervical spine were then performed. Auto Exposure Controls were utilized during the CT exam to meet ALARA standards for radiation dose reduction. INDICATION: Head and neck trauma, fall. COMPARISON: 04/16/2020 CT HEAD: Stable age-related cerebral volume loss and chronic microvascular changes are present. There is no focus of acute ischemia or hemorrhage. There is no extra-axial fluid collection or mass. There is no ventriculomegaly. No skull fracture identified. Paranasal sinuses and mastoids are clear. IMPRESSION: No acute intracranial abnormalities. CT CERVICAL SPINE: Alignment is normal. There is no subluxation or fracture. Mild diffuse degenerative disc disease and facet joint arthropathy is seen. Soft tissues are grossly unremarkable. There is some distention of the upper thoracic esophagus. IMPRESSION: No traumatic malalignment or fracture. Dictated by: Dictated on workstation # [id number]
[2021-03-05 11:52] VITALS: BP 162/84
== END 2021-03-05 11:53 | disposition home or self-care (01) ==
LOC: EDUNIT# 10:05 → ER FS 10:08
DX: S20.211A Contusion of right front wall of thorax, initial encounter (principal); I10 Essential (primary) hypertension; W06.XXXA Fall from bed, initial encounter
CPT/HCPCS: 70450; 71250; 72125

== ENCOUNTER → 2021-04-15 | Outpatient (CLI) | payer MEDICARE, OTHER ==
[~2021-04-15] MED LIST changes: +AMLO2.5T4; +CALC0.253; +CITA20TA9; +FLUO40CR8; +OXYB5TAB13; +TIZA-169; +lorazepam
[2021-04-15 09:55] LABS: HEMATOCRIT 37 % (35-52); HEMOGLOBIN 11.9 g/dL (11.5-16.0); LYMPHOCYTES % (AUTO) 29 % (12-44); MEAN CORPUSCULAR HEMOGLOBIN 31 pg (25-34); MEAN CORPUSCULAR HGB CONC 32 g/dL (32-36); MEAN CORPUSCULAR VOLUME 95 fL (80-99); MEAN PLATELET VOLUME 9.7 fL (9.0-12.2); NEUTROPHILS % (AUTO) 58 % (42-75); PLATELET COUNT 351 10^3/uL (130-400)
[2021-04-15 09:56] LABS: BASOPHILS % (AUTO) 0 % (0-10); EOSINOPHILS # (AUTO) 0.3 10^3/uL (0.0-0.3); EOSINOPHILS % (AUTO) 3 % (0-10); LYMPHOCYTES # (AUTO) 3.2 X 10^3 (1.0-4.0); MONOCYTES % (AUTO) 9 % (0-12); NEUTROPHILS # (AUTO) 6.4 X 10^3 (1.8-7.8)
[2021-04-15 10:57] LABS: ALBUMIN 4.2 GM/DL (3.2-4.5); CREATININE SERUM 2.29 MG/DL (0.60-1.30); MAGNESIUM 1.6 MG/DL (1.6-2.4); POTASSIUM 4.6 MMOL/L (3.6-5.0)
[2021-04-15 11:08] LABS: BILIRUBIN,URINE NEGATIVE (NEGATIVE); CLARITY,URINE CLEAR; COLOR,URINE YELLOW; GLUCOSE, URINE (UA) NEGATIVE (NEGATIVE); KETONES,URINE NEGATIVE (NEGATIVE); LEUKOCYTE ESTERASE ,URINE NEGATIVE (NEGATIVE); NITRITE,URINE NEGATIVE (NEGATIVE); PH,URINE 5.5 (5-9); PROTEIN,URINE NEGATIVE (NEGATIVE)
[2021-04-15 11:09] LABS: BACTERIA,URINE NEGATIVE /HPF
[2021-04-15 14:54] LABS: PHOSPHORUS 4.5 MG/DL (2.3-4.7)
== END ==
LOC: LAB FS 08:34
PROVIDERS: ATTEND Internal Medicine
DX: N18.4 Chronic kidney disease, stage 4 (severe) (principal)
CPT/HCPCS: 36415; 80069; 81000; 82306; 82570; 82607; 82728; 82746; 83540; 83550; 83735; 83970; 84156; 85025

== ENCOUNTER → 2021-10-14 | Outpatient (CLI) | payer MEDICARE, OTHER ==
[2021-10-14 17:03] LABS: BASOPHILS % (AUTO) 0 % (0-10); EOSINOPHILS # (AUTO) 0.4 10^3/uL (0.0-0.3); EOSINOPHILS % (AUTO) 5 % (0-10); HEMATOCRIT 41 % (35-52); HEMOGLOBIN 13.4 g/dL (11.5-16.0); LYMPHOCYTES # (AUTO) 1.9 10^3/uL (1.0-4.0); LYMPHOCYTES % (AUTO) 21 % (12-44); MEAN CORPUSCULAR HEMOGLOBIN 31 pg (25-34); MEAN CORPUSCULAR HGB CONC 33 g/dL (32-36); MEAN CORPUSCULAR VOLUME 93 fL (80-99); MEAN PLATELET VOLUME 9.9 fL (9.0-12.2); MONOCYTES # (AUTO) 0.8 10^3/uL (0.0-1.0); MONOCYTES % (AUTO) 9 % (0-12); NEUTROPHILS # (AUTO) 5.7 10^3/uL (1.8-7.8); NEUTROPHILS % (AUTO) 64 % (42-75); PLATELET COUNT 276 10^3/uL (130-400); WHITE BLOOD COUNT 8.9 10^3/uL (4.3-11.0)
[2021-10-14 17:04] LABS: BILIRUBIN,URINE NEGATIVE (NEGATIVE); CLARITY,URINE CLEAR; COLOR,URINE YELLOW; GLUCOSE, URINE (UA) NEGATIVE (NEGATIVE); KETONES,URINE NEGATIVE (NEGATIVE); LEUKOCYTE ESTERASE ,URINE NEGATIVE (NEGATIVE); NITRITE,URINE NEGATIVE (NEGATIVE); PROTEIN,URINE TRACE (NEGATIVE)
[2021-10-14 17:14] LABS: BACTERIA,URINE NEGATIVE /HPF; SQUAMOUS EPITHELIAL CELL,UR 0-2 /HPF; WBC,URINE 0-2 /HPF
[2021-10-14 17:26] LABS: ALBUMIN 4.1 GM/DL (3.2-4.5); CALCIUM 9.2 MG/DL (8.5-10.1); CREATININE SERUM 1.83 MG/DL (0.60-1.30); MAGNESIUM 1.7 MG/DL (1.6-2.4); POTASSIUM 4.8 MMOL/L (3.6-5.0)
[2021-10-15 15:31] LABS: PHOSPHORUS 4.3 MG/DL (2.3-4.7)
== END ==
LOC: LAB FS 16:23
PROVIDERS: ATTEND Internal Medicine
DX: N18.4 Chronic kidney disease, stage 4 (severe) (principal)
CPT/HCPCS: 36415; 80069; 81000; 82306; 83735; 83970; 85025